=== PATIENT | female | born 1995 | race Two or more races ===

== ENCOUNTER 2017-03-06 11:23 | Inpatient (IN) | payer OTHER ==
[2017-03-05 10:29] VITALS: BMI 36.8
[2017-03-06] MEDS ORDERED: BUPIVACAINE HCL/PF 0.5% (5MG/ML) 10 ML VIAL ONE (14:06)
[2017-03-06] MEDS ORDERED: PROPOFOL 20 ML ONE (14:19)
[2017-03-06] MEDS ORDERED: MIDAZOLAM HCL 2 MG/2 ML SINGLE DOSE VIAL ONE (14:19)
[2017-03-06] MEDS ORDERED: ceFAZolin SODIUM 1 GM VIAL ONE (14:20)
[2017-03-06] MEDS ORDERED: LIDOCAINE HCL/PF 2% SDV 5ML VIAL ONE (14:20)
[2017-03-06] MEDS ORDERED: ALBUTEROL SO4 18 GM HFA INHALER IH ONE (14:51)
[2017-03-06] MEDS ORDERED: DEXAMETHASONE SOD PHOSPHATE 4 MG/1 ML VIAL ONE (14:51)
[2017-03-06] MEDS ORDERED: ACETAMINOPHEN INJECTION 100 ML IVPB ONE (14:54)
[2017-03-06] MEDS ORDERED: ceFAZolin SODIUM 1 GM VIAL IVPB ONE (15:31)
[2017-03-06] MEDS ORDERED: GLYCOPYRROLATE 0.2 MG/1 ML VIAL ONE (15:50)
[2017-03-06] MEDS ORDERED: ePHEDrine SULFATE 50 MG/1 ML AMPULE ONE (15:53)
--- NOTE | 2017-03-06 16:07 | PREOP ---
DATE OF ADMISSION: 03/06/2017 CHIEF COMPLAINT: GE reflux disease, vomiting, and epigastric pain, secondary to malfunctioning gastric band, and also a chief complaint of morbid obesity. HISTORY OF PRESENT ILLNESS: This patient is a 21-year-old female who had a gastric band placed 1 year ago. She had initial success, but then started receiving acid reflux and epigastric pain with vomiting frequently and needed the band loosened. Once that occurred, the patient was able to regain most of her weight, and she presents now for a laparoscopic vertical sleeve gastrectomy. PAST MEDICAL HISTORY: Significant for hypothyroidism and hypercholesterolemia. PAST SURGICAL HISTORY: Significant for the placement of the gastric band. MEDICATIONS: Include metformin and Synthroid. ALLERGIES: She has no known allergies. PHYSICAL EXAMINATION: General: She is awake, alert, in no acute distress. HEENT: No masses palpated. Lungs: Clear bilaterally. Heart: Regular sinus rhythm. Abdomen: Well-healed trocar incision. Soft, nontender on palpation. Extremities: No signs of swelling or edema. IMPRESSION: 1. Morbid obesity. 2. Malfunctioning gastric band. Procedure to be performed is removal of gastric band plus subcutaneous port, plus conversion to vertical sleeve gastrectomy surgery. MADAI CASTAÑEDA M.D. [id number]
[2017-03-06] MEDS ORDERED: BUPIVACAINE HCL/PF 0.5% (5MG/ML) 10 ML VIAL IJ ONE (16:27)
[2017-03-06] MEDS ORDERED: NEOSTIGMINE METHYLSULFATE 0.5 MG/ML - 10 ML MDV ONE (16:42)
--- NOTE | 2017-03-06 17:04 | OP ---
Operative Note - Note: Operative Date: 03/06/17 Pre-Operative Diagnosis: Morbid obesity, reflux, gastric band malfunction Operation: Upper endoscopy/EGD Post-Operative Diagnosis: Same as Pre-op Surgeon: Sebastien Sauceda Anesthesia: General Specimens Removed: None Estimated Blood Loss (mls): 0 Operative Report Dictated: Yes
--- NOTE | 2017-03-06 17:23 | OP ---
Operative Note - Note: Operative Date: 03/06/17 Pre-Operative Diagnosis: Morbid Obesity. Malfunctioning Gastric Band. Epigastric Pain. Vomiting. GE Reflux Disease Operation: Laparoscopic Vertical Sleeve Gastrectomy. Removal of Gastric Band plus subcutaneous port component. Laparoscopic Lysis of Adhesions. Excision of fibrous capsule around stomach. Diagnostic Laparoscopy Findings: Gastric Band with much scar tissue removed from around stomach. Vertical Sleeve Gastrectomy performed with #[address] Implants: none Post-Operative Diagnosis: Same as Pre-op (fibrous capsule around stomach; abdominal adhesions) Surgeon: Alon Jiang Junior Linux Systems Administrator: Sebastien Sauceda Anesthesia: General Specimens Removed: Greater curve of stomach. Gastric Band plus subcutaneous port component Drains & Tubes with Location: none Operative Report Dictated: Yes
[2017-03-06] MEDS ORDERED: PROMETHAZINE HCL 25 MG/1 ML VIAL IVPUSH PRN (17:26)
[2017-03-06] MEDS ORDERED: ONDANSETRON 4 MG/2 ML VIAL IVPUSH PRN ×2 (17:26)
[2017-03-06] MEDS ORDERED: HYDROmorphone HCL CARPU-JECT 1 MG/1 ML DISP.SYRIN IVPB PRN (17:28)
[2017-03-06] MEDS ORDERED: LACTATED RINGERS SOLUTION 1,000 ML IV SCH (17:30)
[2017-03-06] MEDS ORDERED: SODIUM CHLORIDE 1,000 ML IV SCH (17:30)
--- NOTE | 2017-03-06 17:42 | OP ---
DATE OF OPERATION: 03/06/2017 SURGEON: Steph Sauceda MD PREOPERATIVE DIAGNOSES: Morbid obesity, reflux, and gastric band malfunction. POSTOPERATIVE DIAGNOSES: Morbid obesity, reflux, and gastric band malfunction. ESTIMATED BLOOD LOSS: Zero. SPECIMENS: None. REASON FOR PROCEDURE: This is a 21-year-old female who had had previous gastric band placed. She was having dysphagia, reflux, and problems with it, and was undergoing a removal of the gastric band to a sleeve gastrectomy. Because of this, upper endoscopy was requested to evaluate the stomach after the band was removed. Please see Dr. Jiang's operative report for gastric band removal as well as a sleeve gastrectomy. DESCRIPTION OF PROCEDURE: After the gastric band was removed and the capsule was taken down, an endoscope was placed evaluating the esophagus, gastroesophageal junction, and entirety of the stomach to the level of the pylorus. The stomach was noted to be without stricture, without torsion, and without kink. No discrete masses were noted. The stomach was then suctioned. The endoscope was removed fully intact. In addition, a repeat endocopy was performed after the sleeve gastrectomy was performed to evaluate for leak/obstruction. The entirety of the esophagus, GE junction, staple line and stomach ws inspected. No leak or obstruction was noted. Te stomach was suctioned and the endoscope fully removed. STEPH SAUCEDA M.D. [id number] MTDD
[2017-03-06] MEDS ORDERED: HYDROmorphone HCL CARPU-JECT 2 MG/1 ML DISP.SYRIN ONE (18:01)
[2017-03-06 18:05] LABS: MCH 29.4 pg (25.7-33.7); MCHC 33.6 g/dl (32.0-36.0); MEAN CELL VOLUME 87.5 fl (80-96); MEAN PLT VOLUME 8.2 fl (7.5-11.1); PLATELET COUNT 333 K/MM3 (134-434); RDW 12.7 % (11.6-15.6); WHITE BLOOD COUNT 16.3 K/mm3 (4.0-10.0)
[2017-03-06] MEDS: HYDROmorphone HCL CARPU-JECT 1 MG/1 ML DISP.SYRIN IVPUSH PRN ×4 (18:05→18:35)
[2017-03-06 18:33] LABS: ALBUMIN 3.3 g/dl (3.4-5.0); ALK PHOS 73 U/L (45-117); ANION GAP 10 (8-16); BILIRUBIN,TOTAL 0.5 mg/dL (0.2-1.0); CALCIUM 7.8 mg/dL (8.5-10.1); CO2 25 mmol/L (21-32); CREATININE 0.7 mg/dL (0.55-1.02); GLUCOSE,RANDOM 149 mg/dL (74-106); SGOT/AST 15 U/L (15-37); SGPT/ALT 24 U/L (12-78)
[2017-03-06] MEDS ORDERED: METOCLOPRAMIDE HCL INJECTION 10 MG/2 ML VIAL ONE (19:18)
--- NOTE | 2017-03-06 19:19 | OP ---
DATE OF OPERATION: 03/06/2017 PREOPERATIVE DIAGNOSIS: 1. Morbid obesity. 2. Malfunctioning implantable device secondary to gastric band. 3. Epigastric abdominal pain. 4. Gastroesophageal reflux disease. 5. Vomiting. POSTOPERATIVE DIAGNOSIS: 1. Morbid obesity. 2. Mechanical complication of implantable device secondary to gastric band. 3. Epigastric abdominal pain. 4. Gastroesophageal reflux disease. 5. Vomiting. 6. Abdominal adhesions. 7. Fibrous capsule around the stomach. PROCEDURE PERFORMED: 1. Laparoscopic vertical sleeve gastrectomy. 2. Removal of gastric band plus subcutaneous port component. 3. Laparoscopic lysis of adhesions. 4. Excision of fibrous capsule around the stomach. 5. Diagnostic laparoscopy. OPERATING SURGEON: Alon Jiang M.D. COMPLIANCE REVIEW SPECIALIST SURGEON: Sebastien Sauceda M.D. ANESTHESIA: General. OPERATIVE PROCEDURE: The patient was brought into the operating room and was placed on the OR table in the supine position. All precautions were taken initially including padding for the back and the feet, and Venodyne boots were placed on both lower extremities. At that point, the abdomen was prepped and draped in the usual manner. A Veress needle was placed in the left upper quadrant, and a pneumoperitoneum was established. A number 12 bladeless trocar was placed in the left upper quadrant and through the trocar, laparoscopic camera was placed. Under direct vision, a number 15 bladeless trocar was placed in the midline in the supraumbilical position, followed by a number 5 bladeless trocar in the right upper quadrant, and a number 5 bladeless trocar below the left costal margin. A Emily liver retractor was then placed in the epigastrium to retract the left lobe of the liver. The patient was then placed in 20-degree reverse Trendelenburg position. There was an adhesion noted between the omentum and anterior abdominal wall just distal to the stomach that was in the way of viewing the stomach. Therefore the assistant infant teacher surgeon retracted the adhesion laterally, the operating surgeon used a Ligasure device to dissect the adhesions off the anterior abdominal wall. Once this was completed, attention was directed to the band. The band was noted to be around the top of the stomach. There was noted to be a fibrous capsule around the band, and as the assistant infant teacher surgeon retracted the band towards the patient's left side, the operating surgeon used the electrocautery to score over the band and dissect the fibrous capsule off the band on the lesser curvature. Once this was completed, the operating surgeon pulled the band towards the patient's right side as the assistant infant teacher surgeon retracted the greater curve of the stomach inferiorly. The fibrous capsule over the band on the greater curvature was dissected with electrocautery, and this continued all the way to the left diaphragm, and now the entire fibrous capsule wrapped around the band was completely opened. The band tubing was then cut at a takeoff to subcutaneous port, and the band tubing was removed from around the band, and the band was then pulled from around the stomach, and the whole band with the tubing was sent off the field as specimen to pathology. At this point, upper endoscopy was performed by Dr. Sebastien Sauceda, which will be described in his operative note discussing the procedure. This confirmed that the inside the stomach had a normal appearing mucosa and no ill effects to the band being around it, and no fibrous tissue. At this point, the pylorus was found 6 cm measured proximally. Here the operating surgeon lifted the anterior stomach wall toward the anterior abdominal wall, as the assistant infant teacher surgeon retracted the gastrocolic ligament inferiorly. The Ligasure device was then used to dissect the gastrocolic ligament off the greater curve of the stomach. This continued in a superior and vertical direction until a final short gastric vessel between the superior pole of the spleen and proximal fundus was divided. At this juncture, the number 36 bougie, which had been placed by anesthesia, was now pushed all the way down the stomach toward the pylorus. With the bougie held along the lesser curve a series of daksha were performed with the first tube being black load daksha, 6 cm length along the bougie. This was followed by a series of purple load daksha along the bougie until the final staple was fired in the left upper quadrant and the greater curve was now completely detached from the lesser curve. It should be noted that prior to firing the daksha, both the anterior and posterior zhu were checked that they were intact, and in the area of the esophagogastric junction approximately 1 cm serosa remained on the anterior and posterior surfaces. At this juncture, Dr. Sauceda once again performed an upper endoscopy. The bougie was removed, and the upper endoscopy showed that there was no signs of any stricture or obstruction, and the sleeve had no signs of any leaks in the staple line. At this point the greater curve sleeve that was resected was now removed through the number 15 trocar site and handed off the field as specimen. The number 15 and 12 trocar sites were closed with endo closure device to prevent internal bleeding. Under direct visions, all trocars were removed, and the pneumoperitoneum was released. The supraumbilical number 15 port was now extended for about 0.5 cm toward the patient's right side. Electrocautery was used to score the subcutaneous fat tissue, and this continued until the capsule around the port was reached. The fibrous capsule around the port was removed, and the port was then removed from the right anterior rectus muscle and sent off the field as specimen to pathology. All trocar sites now received 0.25% Marcaine and were closed with 4-0 Biosyn in subcuticular fashion. The only exception was a number 15 trocar site which first was closed with 3-0 Vicryl in the subcutaneous tissue , followed by 4-0 Biosyn subcuticular fashion. Dressings were applied, patient awoken from anesthesia and transferred out of the operating room to recovery room in stable condition. ANESTHESIA: General. SURGEON: Alon Jiang M.D. COMPLIANCE REVIEW SPECIALIST: Sebastien Sauceda M.D. ESTIMATED BLOOD LOSS: 30 mL. DISPOSITION: Patient transferred to recovery room in stable condition. Homero VILLALPANDO/[id number]
[2017-03-06] MEDS: METOCLOPRAMIDE HCL INJECTION 10 MG/2 ML VIAL IVPUSH SCH (19:24)
[2017-03-06] MEDS ORDERED: POTASSIUM CHLORIDE 20 MEQ in SODIUM CHLORIDE 250 ML IVPB ONE (20:00)
[2017-03-06] MEDS: ENOXAPARIN NA (PORCINE) 40 MG/0.4 ML DISP.SYRIN SQ SCH (22:34)
[2017-03-06] MEDS: FAMOTIDINE 20 MG/50 ML IVPB 20 MG/50 ML MG IVPB SCH (22:35)
[2017-03-07] MEDS: METOCLOPRAMIDE HCL INJECTION 10 MG/2 ML VIAL IVPUSH SCH ×5 (06:35→22:49)
[2017-03-07 07:22] LABS: MCH 29.8 pg (25.7-33.7); MCHC 34.3 g/dl (32.0-36.0); MEAN CELL VOLUME 86.9 fl (80-96); MEAN PLT VOLUME 8.3 fl (7.5-11.1); PLATELET COUNT 298 K/MM3 (134-434); RDW 12.8 % (11.6-15.6); WHITE BLOOD COUNT 10.9 K/mm3 (4.0-10.0)
[2017-03-07 08:06] LABS: ALBUMIN 3.4 g/dl (3.4-5.0); ALK PHOS 68 U/L (45-117); ANION GAP 10 (8-16); BILIRUBIN,TOTAL 0.5 mg/dL (0.2-1.0); CO2 25 mmol/L (21-32); CREATININE 0.5 mg/dL (0.55-1.02); GLUCOSE,RANDOM 100 mg/dL (74-106); SGOT/AST 18 U/L (15-37); SGPT/ALT 26 U/L (12-78); TOT PROT 6.3 g/dl (6.4-8.2)
[2017-03-07] MEDS: FAMOTIDINE 20 MG/50 ML IVPB 20 MG/50 ML MG IVPB SCH ×2 (09:54→21:10)
[2017-03-07] MEDS: ENOXAPARIN NA (PORCINE) 40 MG/0.4 ML DISP.SYRIN SQ SCH ×2 (09:54→21:10)
[2017-03-07] MEDS ORDERED: oxyCODONE HCL 5 MG TABLET PO PRN (15:35)
[2017-03-07] MEDS ORDERED: ACETAMINOPHEN 325 MG TABLET (FP) PO PRN (15:35)
--- NOTE | 2017-03-07 15:35 | PN ---
Progress Note (short form) - Note Progress Note: POD#1 Afebrile; VSS NO N/V C/O pain in area of LUQ trocar site UGI- no leak, no obstruction K+-3.9 (increased from 3.3) Wbc-11.9 H/H-11.5/33.5 P- Begin PO clear liquids- 2 oz po tid Encourage ambulation Cont DVT prophylaxis
[2017-03-07] MEDS ORDERED: SODIUM CHLORIDE 1,000 ML IV SCH (15:45)
--- NOTE | 2017-03-07 16:03 | PN ---
Progress Note (short form) - Note Progress Note: Anesthesia POD#1 S/P Removal of Gastric Band and Sleeve Gasterectomy under GA VSS,some nausea for which she received the medication. No other complications seen. Jennifer Boo MD.
[2017-03-08 05:49] VITALS: BP 142/65; PULSE 68; TEMP 98.5
[2017-03-08] MEDS: METOCLOPRAMIDE HCL INJECTION 10 MG/2 ML VIAL IVPUSH SCH (06:29)
--- NOTE | 2017-03-10 16:37 | PATH ---
Surgical Pathology Report Patient Name: LIZ ENCINAS Med. Rec. #: [id number] /Age/Gender: 1995 (Age: 21) / F Account: [id number] Location: 4 W TELEMETRY U Taken: 03/06/2017 Received: 03/07/2017 Reported: 03/10/2017 Physicians: Alon Jiang M.D. Specimen(s) Received A: GASTRIC BAND AND SUBCUTANEOUS PORT B: GREATER CURVATURE STOMACH Clinical History Morbid obesity, malfunctioning gastric band Final Diagnosis A. SUBCUTANEOUS PORT AND OLD GASTRIC BAND, REMOVAL: ENDODONTICS DENTIST. MACROSCOPIC DIAGNOSIS. B. STOMACH, GREATER CURVATURE, LAPAROSCOPIC VERTICAL SLEEVE GASTRECTOMY: PORTION OF STOMACH WITH CONGESTION AND MILD CHRONIC GASTRITIS. IMMUNOHISTOCHEMICAL STAIN FOR H. PYLORI IS NEGATIVE. Electronically Signed Elizabeth Langford M.D. Gross Description A. Received fresh labeled "subcutaneous port, old gastric band," is a 4 cm in diameter gastric band with an attached 42 cm in length portion of tubing. Also received within the same container is a 3 cm in diameter x 1.4 cm in depth white, circular device, consistent with a port. The port displays a 13 cm in length portion of tubing extending from one aspect. No soft tissue is present. No sections are submitted, gross only. B. Received in formalin, labeled "greater curvature of stomach," is a 100 gram, 15.5 x 3.5 x 2.9 cm. portion of stomach with a stapled margin of resection. The serosa is bose-rob with minimal attached fat. The mucosa is bose-red with normal folds. No mucosal masses are identified. Logistics Supervisor sections are submitted in one cassette. /03/07/201703/07/2017
== END 2017-03-08 09:06 | disposition home or self-care (01) | DRG 909 ==
LOC: JSAMEDAYSX 13:29 → J4W 19:51
PROVIDERS: ADMIT Surgery; ATTEND Surgery
PROC: 0DB64ZZ Excision of Stomach, Percutaneous Endoscopic Approach (ICD-10-PCS; 2017-03-06)
PROC: 0WJP4ZZ Inspection of Gastrointestinal Tract, Percutaneous Endoscopic Approach (ICD-10-PCS; 2017-03-06)
PROC: 0DJ08ZZ Inspection of Upper Intestinal Tract, Via Natural or Artificial Opening Endoscopic (ICD-10-PCS; 2017-03-06)
PROC: 0DB64Z3 Excision of Stomach, Percutaneous Endoscopic Approach, Vertical (ICD-10-PCS; principal; 2017-03-06 14:30)
PROC: 0DP64CZ Removal of Extraluminal Device from Stomach, Percutaneous Endoscopic Approach (ICD-10-PCS; 2017-03-06 14:30)
DX: T85.518A Breakdown (mechanical) of other gastrointestinal prosthetic devices, implants and grafts, initial encounter (principal); K66.0 Peritoneal adhesions (postprocedural) (postinfection); K31.89 Other diseases of stomach and duodenum; Y83.2 Surgical operation with anastomosis, bypass or graft as the cause of abnormal reaction of the patient, or of later complication, without mention of misadventure at the time of the procedure; Z46.51 Encounter for fitting and adjustment of gastric lap band; E66.01 Morbid (severe) obesity due to excess calories; Z68.36 Body mass index [BMI] 36.0-36.9, adult; K21.9 Gastro-esophageal reflux disease without esophagitis; R10.13 Epigastric pain; R11.10 Vomiting, unspecified
CPT/HCPCS: 36415; 74241-TC; 80053; 84703; 85027; 86850; 86900; 86901; 88300-TC; 88305-TC; 94010; 94760

== ENCOUNTER 2018-02-20 13:52 | Emergency (ER) | payer OTHER ==
[2018-02-20 14:12] VITALS: BP 119/66; PULSE 79; BMI 26.6
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
[2018-02-20] MEDS ORDERED: KETOROLAC TROMETHAMINE 60 MG/2 ML VIAL IM ONE (15:06)
[2018-02-20] MEDS ORDERED: KETOROLAC TROMETHAMINE 60 MG/2 ML VIAL ONE (15:09)
== END 2018-02-20 15:22 | disposition home or self-care (01) ==
LOC: JERFT 13:52
PROC: 3E0233Z Introduction of Anti-inflammatory into Muscle, Percutaneous Approach (ICD-10-PCS; principal; 2018-02-20)
DX: M54.2 Cervicalgia (principal); M54.5 Low back pain; V43.52XA Car driver injured in collision with other type car in traffic accident, initial encounter; Y93.89 Activity, other specified; Y92.410 Unspecified street and highway as the place of occurrence of the external cause
CPT/HCPCS: 84703; 99281-25

== ENCOUNTER 2018-03-27 10:42 | Emergency (ER) | payer OTHER ==
[2018-03-27 10:52] VITALS: BP 149/73; PULSE 84; TEMP 97.9; BMI 26.4
[2018-03-27] MEDS ORDERED: KETOROLAC TROMETHAMINE 60 MG/2 ML VIAL IM ONE (11:30)
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
[2018-03-27] MEDS ORDERED: KETOROLAC TROMETHAMINE 60 MG/2 ML VIAL ONE (11:45)
== END 2018-03-27 13:08 | disposition home or self-care (01) ==
LOC: JERFT 10:42
PROC: 3E0233Z Introduction of Anti-inflammatory into Muscle, Percutaneous Approach (ICD-10-PCS; principal; 2018-03-27)
DX: S16.1XXA Strain of muscle, fascia and tendon at neck level, initial encounter (principal); V43.52XA Car driver injured in collision with other type car in traffic accident, initial encounter; Y93.89 Activity, other specified; Y92.410 Unspecified street and highway as the place of occurrence of the external cause
CPT/HCPCS: 72050-TC-FY; 84703; 99281-25

== ENCOUNTER 2018-05-02 12:39 | Emergency (ER) | payer OTHER ==
[2018-05-02 12:46] VITALS: BP 120/80; PULSE 75; TEMP 98.6; BMI 25.2
[2018-05-02 12:58] LABS: URINE APPEARANCE Clear; URINE BILIRUBIN Negative (NEGATIVE); URINE COLOR Amber; URINE GLUCOSE (UA) Negative (NEGATIVE); URINE KETONE Negative (NEGATIVE); URINE LEUK ESTERASE Negative (NEGATIVE); URINE NITRITE Negative (NEGATIVE); URINE PROTEIN Negative (NEGATIVE); URINE UROBILINOGEN 0.2 (0.2-1.0)
[2018-05-02 13:04] LABS: HCG,QUALITATIVE URINE Negative
--- NOTE | 2018-05-02 13:05 | PDOC ---
History of Present Illness - General Chief Complaint: Pain Stated Complaint: ABD PAIN Time Seen by Provider: 05/02/18 12:40 History Source: Patient Exam Limitations: No Limitations - History of Present Illness Travel History: No Initial Comments: 05/02/18 13:00 22y F sp gastric banding, and sleeve (in 02/2017) presents with intermittent abd pain. Pt states that she has had burning after eating/drinking associated with nausae/vomiting for week. She has had similar symptoms in the past and had H. pylori that was treated and was given famotidine this past week with no significant relief. she is currently asypmtmatic, but is concerned that she may develop the pain again. The patient notse she only has these symptmos after she eats. pt denies any feve/chills, hemetemeisis pt endorses some diarrhea, but notse it has chronic and has it for approx 2 years. no blood or melena noted. pt denies any cp, sob, dizziness, current n/v, abd pain, coughing, extermity swelling. uses occasional NSAIDS for her periods, but does not use it regularly social etoh PMD: Dr. Vitale Past History - Past Medical History Allergies/Adverse Reactions: Allergies Allergy/AdvReac Type Severity Reaction Status Date / Time No Known Drug Allergies Allergy Verified 05/02/18 12:40 Home Medications: Ambulatory Orders Esomeprazole Magnesium [Nexium 24Hr] 20 mg PO DAILY #14 tablet. 05/02/18 Famotidine 20 mg PO DAILY 05/02/18 Mag Hydrox/Aluminum Hyd/Simeth [Maalox Advanced Suspension] 10 ml GT QID PRN #1 bot 05/02/18 Anemia: No Asthma: No Cancer: No Cardiac Disorders: No CVA: No COPD: No CHF: No Dementia: No Diabetes: Yes (H/O BORDERLINE-WAS ON METFORMIN) GI Disorders: Yes (REFLUX, H/O H PYLORI 09/2014) Disorders: No HTN: No Hypercholesterolemia: Yes Liver Disease: No Seizures: No Thyroid Disease: Yes (H/O THYROID DISEASE) - Surgical History Abdominal Surgery: Yes (GASTRIC BAND to sleeve) Appendectomy: No Cardiac Surgery: No Cholecystectomy: No Lung Surgery: No Neurologic Surgery: No Orthopedic Surgery: No - Reproductive History Is Patient Now?: No - Immunization History Immunization Up to Date: Yes - Suicide/Smoking/Psychosocial Hx Smoking Status: No Smoking History: Current some day smoker Have you smoked in the past 12 months: Yes Number of Cigarettes Smoked Daily: 1 If you are a former smoker, when did you quit?: LAST HOOKA USE 06/2015 Information on smoking cessation initiated: No 'Breaking Loose' booklet given: 10/12/13 Hx Alcohol Use: (social) Drug/Substance Use Hx: No Substance Use Type: None Hx Substance Use Treatment: No Review of Systems - Review of Systems Able to Perform ROS?: Yes Comments:: 05/02/18 13:03 Constitutional - no reported Fever, Chills, HEENT: no reported vision changes, sore throat Respiratory: no reported cough, sob, hemoptysis Cardiac: no reported chest pain, palpitations, light headedness, leg swelling Abd/GI: +abd pain, nausea, vomiting, diarrhea no reported blood per rectum, melena, : no reported dysuria, frequency, discharge Musculskelatal - no reported back pain, joint swelling skin - no reported bruising, erythema, rash neurological: no reported headache, numbness, focal weakness, tingling, ataxia, hematologic: no reported easy bruising, easy bleeding GENERAL: The patient is awake, alert, and fully oriented, Nontoxic - in no acute distress. HEAD: Normocephalic, atraumatic. EYES: extraocular movements intact, sclera anicteric, conjunctiva clear. ENT: Normal voice, Moist mucous membranes. NECK: Normal range of motion, supple LUNGS: Breath sounds equal, clear to auscultation bilaterally. No wheezes, no rhonchi, no rales. HEART: Regular rate and rhythm, normal S1 and S2 without murmur, rub or gallop. ABDOMEN: Soft, nontender, No guarding, no rebound. . No CVA tenderness EXTREMITIES: Normal range of motion,no edema NEUROLOGICAL: No facial assymetry, Normal speech, PSYCH: Normal mood, normal affect. SKIN: Warm, Dry, normal turgor, *Physical Exam - Vital Signs Last Vital Signs Temp Pulse Resp BP Pulse Ox 98.6 F 75 18 120/80 100 05/02/18 12:40 05/02/18 12:40 05/02/18 12:40 05/02/18 12:40 05/02/18 12:40 Moderate Sedation - Procedure Monitoring Vital Signs: Procedure Monitoring Vital Signs Temperature 98.6 F 05/02/18 12:40 Pulse Rate 75 05/02/18 12:40 Respiratory Rate 18 05/02/18 12:40 Blood Pressure 120/80 05/02/18 12:40 O2 Sat by Pulse Oximetry (%) 100 05/02/18 12:40 ED Treatment Course - ADDITIONAL ORDERS Additional order review: Laboratory Results 05/02/18 12:48 Urine Color Candice Urine Appearance Clear Urine pH 6.0 Ur Specific [place] 1.025 Urine Protein Negative Urine Glucose (UA) Negative Urine Ketones Negative Urine Blood Negative Urine Nitrite Negative Urine Bilirubin Negative Urine Urobilinogen 0.2 Ur Leukocyte Esterase Negative Medical Decision Making - Medical Decision Making 05/02/18 13:04 suspect gastritis no signs to suggest PUD pt currently asymptmoatic, making panceratitis unlikely abd soft nontender will defer further workup here as pt will most likely benefit from Endoscopy will refer pt to GI for further managemnt will give pt rx for nexium and maalox diet instructions given to patient I discussed the physical exam findings, ancillary test results and final diagnoses with the patient. I answered all of the patient's questions. The patient was satisfied with the care received and felt comfortable with the discharge plan and treatment plan. The patient will call their primary care physician within 24 hours to arrange follow-up and will return to the Emergency Department with any new, persistent or worsening symptoms. *DC/Admit/Observation/Transfer Diagnosis at time of Disposition: GERD (gastroesophageal reflux disease) Qualifiers: Esophagitis presence: without esophagitis Qualified Code(s): K21.9 - Gastro- esophageal reflux disease without esophagitis - Discharge Dispostion Disposition: HOME Condition at time of disposition: Improved Decision to Admit order: No - Prescriptions Prescriptions: Esomeprazole Magnesium [Nexium 24Hr] 20 mg PO DAILY #14 tablet.dr Mag Mendez/Aluminum Hyd/Simeth [Maalox Advanced Suspension] 10 ml GT QID PRN #1 bot PRN Reason: Dyspepsia - Referrals Referrals: Mychal Doll MD [Primary Care Provider] - Roman Escobar MD [Staff Physician] - - Patient Instructions Printed Discharge Instructions: DI for Gastroesophageal Reflux Disease (GERD), GERD Diet Additional Instructions: Return to the emergency department immediately with ANY new, persistent or worsening symptoms including any recurrent abdominal pain, fevers, chills, inability to tolerate oral intake or any other concerns. Stay away from alcohol, spicy foods, caffeine, acidic/sour foods. Take maalox if you have burning for relief. Continue using nexium every night for one week. You MUST call and follow up with your doctor and composition teacher within 5 days for further evaluation of your symptoms. Your emergency department visit is not complete without a followup with your doctor for reevaluation. Results were discussed with you. Please make sure your doctor reviews the results of your emergency evaluation. Print Language: [place] ZEALAND[place] - Post Discharge Activity
== END 2018-05-02 13:25 | disposition home or self-care (01) ==
LOC: FER 12:39
DX: K21.9 Gastro-esophageal reflux disease without esophagitis (principal); F17.210 Nicotine dependence, cigarettes, uncomplicated; E78.00 Pure hypercholesterolemia, unspecified; E03.9 Hypothyroidism, unspecified; R73.03 Prediabetes
CPT/HCPCS: 81003; 84703; 99283-25

== ENCOUNTER 2018-07-10 16:57 | Emergency (ER) | payer OTHER ==
[2018-07-10 17:02] VITALS: BMI 25.4
[2018-07-10 17:19] VITALS: BP 114/76; PULSE 82; TEMP 98.4
--- NOTE | 2018-07-10 17:24 | PDOC ---
History of Present Illness - General History Source: Patient Exam Limitations: No Limitations - History of Present Illness Initial Comments: 07/10/18 17:30 The patient is a 22 year old female with a significant past medical history of DM (diet controlled), reflux (h/o H. Pylori 09/2014), and thyroid disease who presents to the ED with right red eye redness. The patient reports she was taking a hot shower, the water got in her eye and it started burning. The patient notes 2 weeks ago she got a stye in her right eye, which she thought was due to her eyeliner and eventually self resolved. The patient denies any visual changes or discharge from eyes, blurry vision or blindness, fever, chills, dizziness, weakness, paresthesias, No sick contacts or travel. Allergies: NKDA Past Medical History: DM, reflux, and thyroid disease Social history: Lives with family. Everyday recreational marijuana use. Social drinker. Surgical history: gastric banding s/p removal, and sleeve (02/2017) PCP: Mychal Garland Constitutional: no fevers or chills. HEENT: no headache or dizziness. No congestion. No visual/hearing disturbances. No blurry vision or vision loss. No eye discharge, pain, redness. +facial rash, +red lesions/redness to right eye. CVS: no cp or syncope. Resp: no sob. +dry cough. Gastrointestinal: no abdominal pain, nausea or vomiting. Genitourinary: no acute urinary sx, hematuria. MUSCULOSKELETAL: No joint pain and swelling. No neck or back pain. SKIN: no redness or skin changes, no discharge, no rash. No wounds. Hematologic: no easy bruising/bleeding. NEUROLOGIC: No headache, dizziness, LOC or altered mental status. No weakness, numbness or tingling. Allergic/Immunologic: no allergies All other systems reviewed and negative, or as documented in HPI. PE: General: Well appearing, awake and alert, NAD. HEENT: NCAT, PERRL, EOMI, clear conjunctiva, anicteric, moist mucus membranes, clear oropharynx, no oral lesions.. Visual acuity 20/20 bilaterally, without corrective lenses. Right eye superiorly on sclera with small punctate red lesions, no surrounding ocular erythema or edema or tenderness. No discharge. No FB visualized. Eyelids normal bilaterally. Neck: neck supple, FROM Resp: CTAB, normal and even respirations, no respiratory distress CVS: RRR, no murmurs, 2+ peripheral pulses throughout, no peripheral edema Abdomen: soft, NTND, old surgical scars. Back: nontender, normal inspection and ROM MSK: no edema, JOSEPH x4, ROM intact. No clubbing or cyanosis. normal bulk and tone. Neuro: alert Skin: warm and well perfused, cap refill <2 sec, normal color; no purpura or petechiae. Old healing bruises, mild tenderness in RLE <Elisa Cheatham - Last Filed: 07/10/18 17:30> - General History Source: Patient Exam Limitations: No Limitations <Sahra Dominguez - Last Filed: 07/10/18 17:36> - General Chief Complaint: Eye Problem Stated Complaint: EYE REDNESS Time Seen by Provider: 07/10/18 17:11 Past History <Elisa Cheatham - Last Filed: 07/10/18 17:30> - Past Medical History Anemia: No Asthma: No Cancer: No Cardiac Disorders: No CVA: No COPD: No CHF: No Dementia: No Diabetes: Yes (H/O BORDERLINE-WAS ON METFORMIN) GI Disorders: Yes (REFLUX, H/O H PYLORI 09/2014) Disorders: No HTN: No Hypercholesterolemia: Yes Liver Disease: No Seizures: No Thyroid Disease: Yes (H/O THYROID DISEASE) - Surgical History Abdominal Surgery: Yes (GASTRIC BAND to [id number]) Appendectomy: No Cardiac Surgery: No Cholecystectomy: No Lung Surgery: No Neurologic Surgery: No Orthopedic Surgery: No - Immunization History Immunization Up to Date: Yes - Suicide/Smoking/Psychosocial Hx Smoking Status: No Smoking History: Never smoked Have you smoked in the past 12 months: Yes Number of Cigarettes Smoked Daily: 1 If you are a former smoker, when did you quit?: LAST HOOKA USE 06/2015 'Breaking Loose' booklet given: 10/12/13 Hx Alcohol Use: Yes (OCASIONAL) Drug/Substance Use Hx: No Substance Use Type: None Hx Substance Use Treatment: No <Sahra Dominguez - Last Filed: 07/10/18 17:36> - Past Medical History Allergies/Adverse Reactions: Allergies Allergy/AdvReac Type Severity Reaction Status Date / Time No Known Drug Allergies Allergy Verified 07/10/18 16:58 Home Medications: Ambulatory Orders Famotidine 20 mg PO DAILY 05/02/18 *Physical Exam - Vital Signs Last Vital Signs Temp Pulse Resp BP Pulse Ox 98.4 F 82 18 114/76 99 07/10/18 16:58 07/10/18 16:58 07/10/18 16:58 07/10/18 16:58 07/10/18 16:58 <Elisa Cheatham - Last Filed: 07/10/18 17:30> - Vital Signs Last Vital Signs Temp Pulse Resp BP Pulse Ox 98.4 F 82 18 114/76 99 07/10/18 16:58 07/10/18 16:58 07/10/18 16:58 07/10/18 16:58 07/10/18 16:58 <Sahra Dominguez - Last Filed: 07/10/18 17:36> Moderate Sedation - Procedure Monitoring Vital Signs: Procedure Monitoring Vital Signs Temperature 98.4 F 07/10/18 16:58 Pulse Rate 82 07/10/18 16:58 Respiratory Rate 18 07/10/18 16:58 Blood Pressure 114/76 07/10/18 16:58 O2 Sat by Pulse Oximetry (%) 99 07/10/18 16:58 <Elisa Cheatham - Last Filed: 07/10/18 17:30> - Procedure Monitoring Vital Signs: Procedure Monitoring Vital Signs Temperature 98.4 F 07/10/18 16:58 Pulse Rate 82 07/10/18 16:58 Respiratory Rate 18 07/10/18 16:58 Blood Pressure 114/76 07/10/18 16:58 O2 Sat by Pulse Oximetry (%) 99 07/10/18 16:58 <Sahra Dominguez - Last Filed: 07/10/18 17:36> Medical Decision Making - Medical Decision Making 07/10/18 17:34 hpi as documented VS wnl. well appearing normal ocular and face exam, no lesions or petechiae. no s/s allergy or infection. 20/20 visual acuity doubt conjunctivitis, FB. could be burst capillaries or irritation from hot water while showering. pt also admits to wearing makeup, could be contact irritation. Pt to be discharged in stable condition. Patient and family made aware of impression and plan, return precautions discussed (including but not limited to worsening pain or symptoms), fevers, or signs of infection, chest pain, respiratory distress, inability to tolerate oral intake, dehydration, syncope, or neurologic changes). Follow up with PMD and/or specialist as recommended, follow up information provided, take medications as instructed for duration of time. continue with supportive care, avoid triggers and precipitants. All questions answered to patient's satisfaction and expressed understanding and comfort with this. Patient does not suffer from an acute life-threatening medical condition at this time she is safe for outpatient follow-up. <Sahra Dominguez - Last Filed: 07/10/18 17:36> *DC/Admit/Observation/Transfer - Attestations Scribe Attestion: 07/10/18 17:31 Documentation prepared by Elisa Cheatham, acting as medical grade shoemaker for Sahra Dominguez MD, MD <Elisa Cheatham - Last Filed: 07/10/18 17:30> - Discharge Dispostion Decision to Admit order: No - Attestations Physician Attestion: 07/10/18 17:36 I, Sahra Dominguez MD, attest that this document has been prepared under my direction and personally reviewed by me in its entirety. I further attest, that it accurately reflects all work, treatment, procedures and medical decision -making performed by me. <Sahra Dominguez - Last Filed: 07/10/18 17:36> Diagnosis at time of Disposition: Encounter for medical screening examination, Eye exam, routine, Eye irritation - Discharge Dispostion Disposition: HOME Condition at time of disposition: Stable - Referrals Referrals: Mychal Doll MD [Primary Care Provider] - Amy Whatley MD [Staff Physician] - Herson Landin MD [Staff Physician] - Karine Rosa MD [Staff Physician] - Juan Escobar MD [Staff Physician] - - Patient Instructions Printed Discharge Instructions: DI for Red Eye Additional Instructions: you should follow up with master machinist, referrals given as well as primary doctor avoid triggers and exposures to your eye, avoid hot water and irritation. your vision and exam here were benign and within normal limits if visual deficits occur, weakness, numbness, tingling, pain, discharge, redness worsening or skin changes, return sooner for evaluation. - Post Discharge Activity
== END 2018-07-10 17:40 | disposition home or self-care (01) ==
LOC: SUPCPDRO 16:57 → FER 16:57
DX: Z00.8 Encounter for other general examination (principal); Z01.00 Encounter for examination of eyes and vision without abnormal findings
CPT/HCPCS: 99281-25

== ENCOUNTER 2018-12-19 20:25 | Emergency (ER) | payer OTHER ==
[2018-12-19 20:39] VITALS: BP 113/67; PULSE 85; TEMP 98.4; BMI 27.4
--- NOTE | 2018-12-19 21:05 | PDOC ---
History of Present Illness - General Chief Complaint: Eye Problem Stated Complaint: SWELLING TO LT EYE Time Seen by Provider: 12/19/18 20:50 History Source: Patient Exam Limitations: No Limitations - History of Present Illness Initial Comments: 12/19/18 20:55 HISTORY OF PRESENT ILLNESS: 23-year-old woman denies medical history presents emergency department for evaluation of gross to her left eyelid. Patient is concerned as it is sometimes painful but the pain has been relieved by over-the- counter Aleve. She denies any blurry vision or any visual changes. She denies pain to the globe itself and the pain is localized solely to the eyelid. No recent travel or sick contacts. PAST MEDICAL HISTORY: Denies past medical history SURGICAL HISTORY: Denies ALLERGIES: No known drug allergies REVIEW OF SYSTEMS General/Constitutional: Denies fever or chills. Denies weakness, weight change. HEENT: see HPI Cardiovascular: Denies chest pain or shortness of breath. Respiratory: Denies cough, wheezing, or hemoptysis. Gastrointestinal: Denies nausea, vomiting, diarrhea or constipation. Denies rectal bleeding. Genitourinary: Denies dysuria, frequency, or change in urination. Musculoskeletal: Denies joint or muscle swelling or pain. Denies neck or back pain. Skin and breasts: Denies rash or easy bruising. Neurologic: Denies headache, vertigo, loss of consciousness, or loss of sensation. Psychiatric: Denies depression or anxiety. Endocrine: Denies increased thirst. Denies abnormal weight change. Hematologic/Lymphatic: Denies anemia, easy bleeding, or history of blood clots. Allergic/Immunologic: Denies hives or skin allergy. Denies latex allergy. PHYSICAL EXAM General Appearance: Well-appearing, appropriately dressed. No apparent distress , no intoxication. HEENT: EOMI, PERRLA, normal ENT inspection, normal voice, TMs normal, pharynx normal. No conjunctival pallor. No photophobia, scleral icterus.Left upper eyelid Chiles in noted. No conjunctival erythema or scleral injection present. Visual acuity is 20/20 right eye, left eye both ice. Neck: Supple. Trachea midline. No tenderness, rigidity, carotid bruit, stridor , lymphadenopathy, or thyromegaly. Respiratory/Chest: Lungs CTAB. No shortness of breath, chest tenderness, respiratory distress, accessory muscle use. No crackles, rales, rhonchi, stridor , wheezing, dullness Cardiovascular: RRR. S1, S2. No JVD, murmur, bradycardia, tachycardia. Past History - Past Medical History Allergies/Adverse Reactions: Allergies Allergy/AdvReac Type Severity Reaction Status Date / Time No Known Drug Allergies Allergy Verified 07/10/18 16:58 Home Medications: Ambulatory Orders Famotidine 20 mg PO DAILY 05/02/18 Anemia: No Asthma: No Cancer: No Cardiac Disorders: No CVA: No COPD: No CHF: No Dementia: No Diabetes: Yes (H/O BORDERLINE-WAS ON METFORMIN) GI Disorders: Yes (REFLUX, H/O H PYLORI 09/2014) Disorders: No HTN: No Hypercholesterolemia: Yes Liver Disease: No Seizures: No Thyroid Disease: Yes (H/O THYROID DISEASE) - Surgical History Abdominal Surgery: Yes (GASTRIC BAND to [id number]) Appendectomy: No Cardiac Surgery: No Cholecystectomy: No Lung Surgery: No Neurologic Surgery: No Orthopedic Surgery: No - Immunization History Immunization Up to Date: Yes - Suicide/Smoking/Psychosocial Hx Smoking Status: No Smoking History: Never smoked Have you smoked in the past 12 months: Yes Number of Cigarettes Smoked Daily: 1 If you are a former smoker, when did you quit?: LAST HOOKA USE 06/2015 'Breaking Loose' booklet given: 10/12/13 Hx Alcohol Use: No Drug/Substance Use Hx: No Substance Use Type: None Hx Substance Use Treatment: No *Physical Exam - Vital Signs Last Vital Signs Temp Pulse Resp BP Pulse Ox 98.4 F 85 20 113/67 100 12/19/18 20:31 12/19/18 20:31 12/19/18 20:31 12/19/18 20:31 12/19/18 20:31 Medical Decision Making - Medical Decision Making 12/19/18 20:54 A/P: 23-year-old woman with left upper eyelid chalazion Supportive treatment is been discussed with the patient patient is discharged home follow-up to primary doctor as needed. *DC/Admit/Observation/Transfer Diagnosis at time of Disposition: Chalazion left upper eyelid - Discharge Dispostion Disposition: HOME Condition at time of disposition: Stable Decision to Admit order: No - Referrals Referrals: Yessenia Mclean [Primary Care Provider] - - Patient Instructions Printed Discharge Instructions: DI for Chalazion Additional Instructions: You may take Zyrtec during the day and Benadryl at night to help with swelling or itching. Continue to take Tylenol and Aleve as directed by manufacturers instructions. Return to emergency department to experience vision loss, fevers, chills or worsening symptoms. Thank you very much for choosing us to provide your emergent health care needs. - Post Discharge Activity
== END 2018-12-19 21:00 | disposition home or self-care (01) ==
LOC: JERFT 20:25
DX: H00.14 Chalazion left upper eyelid (principal); E11.9 Type 2 diabetes mellitus without complications; E78.00 Pure hypercholesterolemia, unspecified; K21.9 Gastro-esophageal reflux disease without esophagitis
CPT/HCPCS: 99281-25

== ENCOUNTER 2019-02-27 17:40 | Emergency (ER) | payer OTHER ==
[2019-02-27 17:50] VITALS: BP 151/94; PULSE 81; TEMP 98.3; BMI 26.9
[2019-02-27] MEDS ORDERED: ACETAMINOPHEN 325 MG TABLET (FP) PO ONE (18:08)
[2019-02-27] MEDS ORDERED: METOCLOPRAMIDE HCL INJECTION 10 MG/2 ML VIAL IM ONE (18:09)
[2019-02-27] MEDS ORDERED: diphenhydrAMINE HCL 25 MG CAPSULE (FP) PO ONE (18:09)
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
== END 2019-02-27 18:35 | disposition left against medical advice (07) ==
LOC: JERFT 17:40
DX: R51 Headache (principal); E11.9 Type 2 diabetes mellitus without complications; E78.00 Pure hypercholesterolemia, unspecified; E07.9 Disorder of thyroid, unspecified; Z98.84 Bariatric surgery status
CPT/HCPCS: 99281-25

== ENCOUNTER 2019-06-06 06:09 | Emergency (ER) | payer OTHER ==
[2019-06-06 07:04] VITALS: BP 122/83; PULSE 79; TEMP 98.1; BMI 29.2
[2019-06-06] MEDS ORDERED: DIPHTH,PERTUSS(ACELL),TET 0.5 ML DISP.SYRIN IM ONE ×2 (07:34→07:42)
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
== END 2019-06-06 08:43 | disposition home or self-care (01) ==
LOC: JER 06:09
PROC: 3E0234Z Introduction of Serum, Toxoid and Vaccine into Muscle, Percutaneous Approach (ICD-10-PCS; principal; 2019-06-06)
PROC: 0HQFXZZ Repair Right Hand Skin, External Approach (ICD-10-PCS; 2019-06-06)
DX: S61.216A Laceration without foreign body of right little finger without damage to nail, initial encounter (principal); W25.XXXA Contact with sharp glass, initial encounter; Y93.89 Activity, other specified; Y92.59 Other trade areas as the place of occurrence of the external cause; Y99.8 Other external cause status; E11.9 Type 2 diabetes mellitus without complications; E78.00 Pure hypercholesterolemia, unspecified; K21.9 Gastro-esophageal reflux disease without esophagitis; E07.9 Disorder of thyroid, unspecified
CPT/HCPCS: 73140-TC-RT-FY; 90715; 99283-25

== ENCOUNTER 2019-07-02 12:01 | Emergency (ER) | payer OTHER ==
[2019-07-02 12:16] VITALS: BP 124/77; PULSE 87; TEMP 98; BMI 29.8
--- NOTE | 2019-07-02 12:53 | PDOC ---
Suture Removal/Wound Check HPI - History of Present Illness Chief Complaint: Suture/Staple Removal (other) Stated Complaint: HAND LAC. Time Seen by Provider: 07/02/19 12:52 History Source: Yes: Patient Past History - Travel Traveled outside of the country in the last 30 days: No Close contact w/someone who was outside of country & ill: No - Past Medical History Allergies/Adverse Reactions: Allergies Allergy/AdvReac Type Severity Reaction Status Date / Time No Known Drug Allergies Allergy Verified 07/02/19 12:13 Home Medications: Ambulatory Orders Famotidine 20 mg PO DAILY 05/02/18 Anemia: No Asthma: No Cancer: No Cardiac Disorders: No CVA: No COPD: No CHF: No Dementia: No Diabetes: Yes (H/O BORDERLINE-WAS ON METFORMIN) GI Disorders: Yes (REFLUX, H/O H PYLORI 09/2014) Disorders: No HTN: No Hypercholesterolemia: Yes Liver Disease: No Seizures: No Thyroid Disease: Yes (H/O THYROID DISEASE) - Surgical History Abdominal Surgery: Yes (GASTRIC BAND to [id number]) Appendectomy: No Cardiac Surgery: No Cholecystectomy: No Lung Surgery: No Neurologic Surgery: No Orthopedic Surgery: No - Immunization History Immunization Up to Date: Yes - Psycho Social/Smoking Cessation Hx Smoking Status: No Smoking History: Unknown if ever smoked Have you smoked in the past 12 months: No Number of Cigarettes Smoked Daily: 1 If you are a former smoker, when did you quit?: LAST HOOKA USE 06/2015 'Breaking Loose' booklet given: 10/12/13 Hx Alcohol Use: No Drug/Substance Use Hx: No Substance Use Type: None Hx Substance Use Treatment: No *Physical Exam - Vital Signs Last Vital Signs Temp Pulse Resp BP Pulse Ox 98 F 87 16 124/77 100 07/02/19 12:13 07/02/19 12:13 07/02/19 12:13 07/02/19 12:13 07/02/19 12:13 - Physical Exam 07/02/19 13:11 Chief complaint: Suture removal Patient is a healthy 23-year-old female who was seen here on June 06, had sutures placed to the right little finger. Patient came to have sutures removed. Patient denies any problems, some of the sutures have already come out. GENERAL/CONSTITUTIONAL: No fever, weakness. dizziness HEAD, EYES, EARS, NOSE AND THROAT: No change in vision. No ear pain or discharge. No sore throat. CARDIOVASCULAR: No chest pain RESPIRATORY: No shortness of breath or cough GASTROINTESTINAL: No pain, nausea, vomiting, diarrhea or constipation GENITOURINARY: No dysuria MUSCULOSKELETAL: No neck or back pain SKIN: No rash, + sutures in place NEUROLOGIC: No headache, vertigo, loss of consciousness, or loss of sensation. GENERAL: The patient is awake, alert, and fully oriented, in no acute distress. HEAD: Normal with no signs of trauma. EYES: Pupils equal, round and reactive to light, sclera anicteric, conjunctiva clear. ENT: pharynx: no erythema, no exudate, uvula midline NECK: supple CHEST: clear, nontender, rr ABD: soft, nontender BACK: no tenderness or signs of injury EXTREMITIES: Right little finger with [address], some rough skin, one area where there is a bump, but no obvious visible suture underneath. No signs of infection, full range of motion, neurovascular intact. Rest of extremities, normal range of motion, no edema. NEUROLOGICAL: Normal speech, normal gait. SKIN: Warm, Dry Medical Decision Making - Medical Decision Making 07/02/19 13:13 Healthy 23-year-old female to have sutures removed, they have been in since June 06. 2 sutures remain, no signs of infection. There is one area that has a bump. Patient is aware that if that does not get better she should follow-up with plastic surgeon to see if she needs a procedure or if there is something buried underneath like a suture. Discussed issues, findings, results, applicable medications and treatments and follow-up. All these were understood and all questions were answered Discharge - Discharge Information Problems reviewed: Yes Clinical Impression/Diagnosis: Visit for suture removal Condition: Stable Disposition: HOME - Admission No - Follow up/Referral Referrals: Yessenia Mclean [Primary Care Provider] - - Patient Discharge Instructions Patient Printed Discharge Instructions: DI for Suture Removal Additional Instructions: Clean with soap and water 2-3 times daily, apply bacitracin Have her reevaluated if redness, pus, fever or getting worse Followup with your doctor - Post Discharge Activity
== END 2019-07-02 13:05 | disposition home or self-care (01) ==
LOC: JERFT 12:01
DX: Z48.02 Encounter for removal of sutures (principal)
CPT/HCPCS: 99281-25

== ENCOUNTER 2020-02-07 12:46 | Emergency (ER) | payer OTHER ==
--- NOTE | 2020-02-07 12:52 | PDOC ---
Rapid Medical Evaluation Time Seen by Provider: 02/07/20 12:48 Medical Evaluation: Allergies Allergy/AdvReac Type Severity Reaction Status Date / Time No Known Drug Allergies Allergy Verified 07/02/19 12:13 02/07/20 12:48 24 year old female smoker presenting with cough and congestion (covid negative) now with hemoptysis x 3 dime sized. PE: CTA RRR VSS Plan: Chest XR
[2020-02-07 12:54] VITALS: BP 122/88; PULSE 82; TEMP 98.2; BMI 31.1
--- NOTE | 2020-02-07 13:02 | PDOC ---
History of Present Illness - General Chief Complaint: Cold Symptoms Stated Complaint: BLOOD IN SPUTUM Time Seen by Provider: 02/07/20 12:48 History Source: Patient Exam Limitations: No Limitations - History of Present Illness Initial Comments: 02/07/20 12:55 24 year odl female no pmhx presenting to the ED with 1 week of cough and congestion. Pt tested negative for COVID at [facility]. Pt is now complaining of 3 episodes of dime sized hemopysis without associated SOB or chest pain. Pt is not on control, no recent travel. Pt otherwise denies: fevers, chills, syncope, lightheadedness, dizziness, headaches, neck pain, chest pain, shortness of breath, palpitations, back pain, abdominal pain, nausea, vomiting, diarrhea, constipation. Past History - Medical History Allergies/Adverse Reactions: Allergies Allergy/AdvReac Type Severity Reaction Status Date / Time No Known Drug Allergies Allergy Verified 02/07/20 12:49 Home Medications: Ambulatory Orders Famotidine 20 mg PO DAILY 05/02/18 Anemia: No Asthma: No Cancer: No Cardiac Disorders: No CVA: No COPD: No CHF: No Dementia: No Diabetes: Yes (H/O BORDERLINE-WAS ON METFORMIN) GI Disorders: Yes (REFLUX, H/O H PYLORI 09/2014) Disorders: No HTN: No Hypercholesterolemia: Yes Liver Disease: No Seizures: No Thyroid Disease: Yes (H/O THYROID DISEASE) - Surgical History Abdominal Surgery: Yes (GASTRIC BAND to [id number]) Appendectomy: No Cardiac Surgery: No Cholecystectomy: No Lung Surgery: No Neurologic Surgery: No Orthopedic Surgery: No - Reproductive History Is Patient Now?: No - Immunization History Immunization Up to Date: Yes - Psycho-Social/Smoking History Smoking Status: No Smoking History: Current every day smoker Have you smoked in the past 12 months: Yes Number of Cigarettes Smoked Daily: 0 If you are a former smoker, when did you quit?: LAST HOOKA USE 06/2015 Information on smoking cessation initiated: Yes 'Breaking Loose' booklet given: 10/12/13 - Substance Abuse Hx (Audit-C & DAST Scrn) How often the patient has a drink containing alcohol: Never Score: In Men: 4 or > Positive; In Women: 3 or > Positive: 0 Screen Result (Pos requires Nsg. Audit-10AR): Negative In the last yr the pt used illegal drug/Rx for NonMed reason: No Score: Yes response is considered Positive: 0 Screen Result (Positive result requires Nsg. DAST-10): Negative *Physical Exam - Vital Signs Last Vital Signs Temp Pulse Resp BP Pulse Ox 98.2 F 82 18 122/88 100 02/07/20 12:49 02/07/20 12:49 02/07/20 12:49 02/07/20 12:49 02/07/20 12:49 - Physical Exam 02/07/20 12:58 Gen: AAOx 3, no acute distress, comfortable, no signs of respiratory distress HENT: atraumatic, normocephalic with no laceration or contusion. Nasal mucosa without erythema. Oropharynx without erythema or exudates. Mucous membranes moist. EYES: PERRL, EOM intact, conjunctiva pink NECK: supple; trachea midline; no JVD, no lymphadenopathy, or thyromegaly CV: RRR no murmurs, gallops, or rubs. CHEST: CTA b/l no wheezing, rales or rhonchi ABD: +BS/ND. no TTP; soft, no rebound, no guarding EXTREMITY: no cyanosis or erythema. 2+ dorsalis pedis, posterior tibial, and radial pulse. No pedal edema; no calf swelling or tenderness SKIN: no rash, warm and dry, no diaphoresis HEME: no purpura or ecchymosis NEURO: normal speech, CN II-XII intact, sensation intact, normal gait, no cerebellar deficits MS: 5/5 strength in all extremities, FROM intact in all extremities. ED Treatment Course - RADIOLOGY Radiology Studies Ordered: Category Date Time Status CHEST PA & LAT [RAD] Stat Radiology 02/07/20 12:52 Ordered Medical Decision Making - Medical Decision Making 02/07/20 12:58 24 year old female with cough and congestion VSS PERC negative Well's score low Plan: Chest XR Covid swab If CXr negative will discharge with close PCP follow up Chest XR negative for any acute pathology Pts symptoms most likely viral in nature and blood in phelm most likely from posttussive trauma and benign. isolation precautions given until COVID results are back Pt appears well and is safe and stable for discharge with strict return precautions including signs and symptoms requring immediate return to the ED Supportive care instructions explained and given to pt. Reasons to return emergently to ER explained and given. Importance of follow up with PMD and other specialists as indicated stressed to pt. Pt verbalized understanding of instructions. Pt to follow up with PMD in 2 days. 02/07/20 13:02 Discharge - Discharge Information Problems reviewed: Yes Clinical Impression/Diagnosis: Viral URI with cough Condition: Stable Disposition: HOME - Follow up/Referral - Patient Discharge Instructions Patient Printed Discharge Instructions: DI for Acute Bronchitis - Post Discharge Activity Work/Back to School Note: Back to Work
--- OUTSIDE RECORDS SUMMARY | 2020-02-07 13:20 | XMS ---
:1995 Author Organization [facility] Care Team Providers Name Role Phone GARLAND Unavailable Unavailable ED STAFF PHYSICIAN, STAFF Unavailable Unavailable Re-disclosure Warning The records that you are about to access may contain information from federally- assisted alcohol or drug abuse programs. If such information is present, then the following federally mandated warning applies: This information has been disclosed to you from records protected by federal confidentiality rules (42 CFR part 2). The federal rules prohibit you from making any further disclosure of this information unless further disclosure is expressly permitted by the written consent of the person to whom it pertains or as otherwise permitted by 42 CFR part 2. A general authorization for the release of medical or other information is NOT sufficient for this purpose. The Federal rules restrict any use of the information to criminally investigate or prosecute any alcohol or drug abuse patient.The records that you are about to access may contain highly sensitive health information, the redisclosure of which is protected by Article 27-F of the [facility] Public Health law. If you continue you may haveaccess to information: Regarding HIV / AIDS; Provided by facilities licensed or operated by the [facility] Office of Mental Health; or Provided by the [facility] Office for People With Developmental Disabilities. If such information is present, then the following [facility] mandated warning applies: This information has been disclosed to you from confidential records which are protected by state law. State law prohibits you from making any further disclosure of this information without the specific written consent of the person to whom it pertains, or as otherwise permitted by law. Any unauthorized further disclosure in violation of state law may result in a fine or usp sentence or both. A general authorization for the release of medical or other information is NOT sufficient authorization for further disclosure. Encounters Encounter Providers Location Date Indications Data Source(s ) Outpatient Attender: 08/28/2019 Z03.818 [facility] emely KARAdmitter: GARLAND 04:00:00 PM [facility] EDT [facility] Z03.818 Emergency Attender: STAFF ED STAFF H 06/06/2019 03:28:00 AM [facility] PHYSICIAN EST - 06/06/2019 07:07:00 Center AM EST Patient discharged. Insurance Providers Payer name Policy Policy ID Covered Covered Policy Plan Info rmation type / alliance party ID alliance party's Ariza Coverage relationship type to ariza CIGNA [id number] SP [id number] 303 HEALTHCARE HMO G H I - O [id number] 01 [id number] [facility] C I G N A O [id number] 01 [id number] H M O O NO FAULT [id number] SP [id number] CIGNA [id number] FA [id number] 303 HEALTHCARE HMO [place] [id number] SP [id number] Problems, Conditions, and Diagnoses Code Display Name Description Problem Type Effective Data Sour ce(s) Dates Z03.818 Encounter for ENCNTR FOR OBS Diagnosis 08/28/2019 [facility] for FOR SUSP EXPSR 04:00:00 PM Coun ty Health suspected TO OT BIOLG EDT Care Corpor[facility] tion exposure to other AGENTS RULED OUT biological agents ruled out Z53.21 Procedure and PROC/TRTMT NOT Diagnosis 06/06/2019 [facility] treatment not CRD OUT D/T PT 03:28:00 AM Medica l Center carried out due LV BEF SEEN BY EST to patient TH CARE PROV leaving prior to being seen by health care provider Y99.9 Unspecified UNSPECIFIED Diagnosis 06/06/2019 [place] [facility] external cause EXTERNAL CAUSE 03:28:00 AM Medic al Center status STATUS EST Y92.[address] UNSPECIFIED Diagnosis 06/06/2019 [facility] or not applicable PLACE OR NOT 03:28:00 AM [facility] APPLICABLE EST Y93.9 Activity, ACTIVITY, Diagnosis 06/06/2019 [facility] unspecified UNSPECIFIED 03:28:[address] EST W25.XXXA Contact with CONTACT WITH Diagnosis 06/06/2019 [facility] [place], [place], 03:28:00 AM Medical C enter initial encounter INITIAL EST ENCOUNTER S61.216A Laceration LAC W/O FB OF R Diagnosis 06/06/2019 [facility] without foreign LITTLE FINGER 03:28:00 AM Medic al Center body of right W/O DAMAGE TO EST little finger NAIL, INIT without damage to nail, initial encounter Results ID Date Data Source [id number] 08/28/2019 12:00:00 AM EDT [facility] Name Value Range Interpretation Code Description Data [facility] rce(s) Supporting Document(s ) 2019-nCoV [facility] RNA XXX NIKKI+probe- Imp This lab was ordered by [facility] and reported by [employer] Procedure Social History Code Duration Value Status Description Data Source(s ) Smoking 06/06/2019 Denies Ever completed Denies Ever Smoked [facility] 03:32:00 AM EST Smoked Medical C enter
== END 2020-02-07 13:24 | disposition home or self-care (01) ==
LOC: JER 12:46
DX: R05 Cough (principal); J06.9 Acute upper respiratory infection, unspecified
CPT/HCPCS: 71046-TC-FY; 99284-25; C9803; U0003

== ENCOUNTER 2020-02-07 23:19 | Emergency (ER) | payer OTHER ==
--- OUTSIDE RECORDS SUMMARY | 2020-02-07 23:42 | XMS ---
:1995 Author Organization [facility] Care Team Providers Name Role Phone ED STAFF PHYSICIAN, STAFF Unavailable Unavailable MADISON HAQUE Unavailable Unavailable Re-disclosure Warning The records that [...] is protected by Article 27-F of the [facility] Public Health law. If you continue you may haveaccess to information: Regarding HIV / AIDS; Provided by facilities licensed or operated by the [facility] Office of Mental Health; or Provided by the [facility] Office for People With Developmental Disabilities. If such information is present, then the following [facility] mandated warning applies: This information has [...] law may result in a fine or [place] health [facility] sentence or both. A general authorization for the release of medical or other information is NOT sufficient authorization for further disclosure. Encounters Encounter Providers Location Date Indications Data Source(s ) Outpatient Attender: GARLAND 08/28/2019 Z03.818 [facility] LUCIUSdmitter: 04:00:00 PM Health C are GARLAND MADISON [employer] SCM-GL Z03.818 Emergency Attender: STAFF ED STAFF H 06/06/2019 03:28:00 AM [facility] PHYSICIAN EST - 06/06/2019 07:07:00 Center AM EST Patient discharged. Insurance Providers Payer name Policy Policy ID Covered Covered Policy Plan Info rmation type / alliance party ID alliance party's Ariza Coverage relationship type to ariza CIGNA [id number] SP [id number] 303 HEALTHCARE HMO G H I - O [id number] 01 [id number] [facility] C I G N A O [id number] 01 [id number] H M O O NO FAULT [id number] SP 049 [id number] CIGNA [id number] FA [id number] 303 HEALTHCARE HMO [place] [id number] SP 049 [id number] Problems, Conditions, and Diagnoses Code Display Name Description Problem Type Effective Data Sour ce(s) Dates Z03.818 Encounter for ENCNTR FOR OBS Diagnosis 08/28/2019 [place] [facility] observation for FOR SUSP EXPSR 04:00:00 PM Coun ty Health suspected TO OT BIOLG EDT Care Corpor[facility] tion exposure to other AGENTS RULED OUT biological agents ruled out Z53.21 Procedure and PROC/TRTMT NOT Diagnosis 06/06/2019 [facility] treatment not CRD OUT D/T PT 03:28:00 AM Medica l Center carried out due LV BEF SEEN BY EST to patient TH CARE PROV leaving prior to being seen by health care provider Y99.9 Unspecified UNSPECIFIED Diagnosis 06/06/2019 [facility] external cause EXTERNAL CAUSE 03:28:00 AM Medic al Center status STATUS EST Y92.[address] UNSPECIFIED Diagnosis 06/06/2019 [facility] or not applicable PLACE OR NOT 03:28:00 AM [facility] APPLICABLE EST Y93.9 Activity, ACTIVITY, Diagnosis 06/06/2019 [...] initial encounter Results ID Date Data Source [id number] 08/28/2019 12:00:00 AM EDT [facility] Name Value Range Interpretation Code Description Data [facility] rce(s) Supporting Document(s ) 2019-nCoV [facility] RNA XXX NIKKI+probe- Imp This lab was ordered by [facility] and reported by [employer] Procedure Social History Code Duration Value Status Description Data Source(s ) Smoking 06/06/2019 Denies Ever completed Denies Ever Smoked [facility] 03:32:00 AM EST Smoked Medical C enter
[2020-02-07 23:47] VITALS: BP 143/83; PULSE 76; TEMP 99.1; BMI 28.3
--- NOTE | 2020-02-08 00:36 | PDOC ---
History of Present Illness - General Chief Complaint: Cold Symptoms Stated Complaint: RE VISIT/ COUGH Time Seen by Provider: 02/08/20 00:06 History Source: Patient - History of Present Illness Initial Comments: 02/08/20 00:49 24-year-old female complains of cough for the last 2 weeks denies fever/chills seen in this ER earlier was diagnosed with viral URI cough. Patient had a chest x-ray which was negative he COVID is pending. Patient reports that the last 2 days she has been having blood-tinged sputum with cough pain to the upper back Worse with movement. Past History - Medical History Allergies/Adverse Reactions: Allergies Allergy/AdvReac Type Severity Reaction Status Date / Time No Known Drug Allergies Allergy Verified 02/07/20 23:46 Home Medications: Ambulatory Orders Famotidine 20 mg PO DAILY 05/02/18 Albuterol Sulfate Inhaler - [Ventolin HFA Inhaler -] 2 inh PO Q6H PRN #1 inh Azithromycin [Zithromax 250mg Tablets -] 250 mg PO UTDICT #6 tab 02/08/20 Promethazine/Dextromethorphan [Promethazine-Dm Syrup] 5 ml PO QID PRN #90 ml 02/08/20 Anemia: No Asthma: No Cancer: No Cardiac Disorders: No CVA: No COPD: No CHF: No Dementia: No Diabetes: Yes (H/O BORDERLINE-WAS ON METFORMIN) GI Disorders: Yes (REFLUX, H/O H PYLORI 09/2014) Disorders: No HTN: No Hypercholesterolemia: Yes Liver Disease: No Seizures: No Thyroid Disease: Yes (H/O THYROID DISEASE) - Surgical History Abdominal Surgery: Yes (GASTRIC BAND to [id number]) Appendectomy: No Cardiac Surgery: No Cholecystectomy: No Lung Surgery: No Neurologic Surgery: No Orthopedic Surgery: No - Reproductive History Is Patient Now?: No - Immunization History Immunization Up to Date: Yes - Psycho-Social/Smoking History Smoking Status: No Smoking History: Never smoked Have you smoked in the past 12 months: No Number of Cigarettes Smoked Daily: 0 If you are a former smoker, when did you quit?: LAST HOOKA USE 06/2015 Information on smoking cessation initiated: No 'Breaking Loose' booklet given: 10/12/13 - Substance Abuse Hx (Audit-C & DAST Scrn) How often the patient has a drink containing alcohol: Never Score: In Men: 4 or > Positive; In Women: 3 or > Positive: 0 Screen Result (Pos requires Nsg. Audit-10AR): Negative In the last yr the pt used illegal drug/Rx for NonMed reason: No Score: Yes response is considered Positive: 0 Screen Result (Positive result requires Nsg. DAST-10): Negative Review of Systems - Review of Systems Able to Perform ROS?: Yes Is the patient limited Slovak proficient: No Respiratory: Yes: Cough *Physical Exam - Vital Signs Last Vital Signs Temp Pulse Resp BP Pulse Ox 99.1 F 76 18 143/83 99 02/07/20 23:35 02/07/20 23:35 02/07/20 23:35 02/07/20 23:35 02/07/20 23:35 - Physical Exam General Appearance: Yes: Appropriately Dressed Respiratory/Chest: positive: Chest Tender (left posterior chest negative), Lungs Clear, Normal Breath Sounds Cardiovascular: positive: Regular Rhythm, Regular Rate Integumentary: positive: Normal Color, Dry, Warm Neurologic: positive: Fully Oriented, Alert, Normal Mood/Affect ED Progress Note - Progress Note Progress Note: 02/08/20 03:24 A: bronchitis; costochondral pain P: albuterol z-pack tylenol promethazine Discharge - Discharge Information Problems reviewed: Yes Clinical Impression/Diagnosis: Bronchitis, Costochondral pain Condition: Fair Disposition: HOME - Additional Discharge Information Prescriptions: Promethazine/Dextromethorphan [Promethazine-Dm Syrup] 5 ml PO QID PRN #90 ml PRN Reason: Cough Albuterol Sulfate Inhaler - [Ventolin HFA Inhaler -] 2 inh PO Q6H PRN #1 inh PRN Reason: Cough Azithromycin [Zithromax 250mg Tablets -] 250 mg PO UTDICT #6 tab - Follow up/Referral Referrals: Mychal Doll MD [Primary Care Provider] - - Patient Discharge Instructions Patient Printed Discharge Instructions: DI for Common Cold, [facility] COVID-19 Isolation Protocol Additional Instructions: Drink plenty of fluids. Take azithromycin as prescribed. Use promethazine as needed for cough you may use albuterol inhaler. Return to the emergency room for any worsening symptoms - Post Discharge Activity Work/Back to School Note: Back to Work
[2020-02-08] MEDS ORDERED: ACETAMINOPHEN 500 MG TABLET (FP) PO ONE (00:55)
[2020-02-08] MEDS ORDERED: ACETAMINOPHEN 500 MG TABLET (FP) ONE (00:59)
== END 2020-02-08 01:04 | disposition home or self-care (01) ==
LOC: JER 23:19
DX: J20.9 Acute bronchitis, unspecified (principal); R07.1 Chest pain on breathing
CPT/HCPCS: 99283-25

== ENCOUNTER 2020-02-08 12:57 | Inpatient (IN) | payer OTHER ==
[2020-02-08 13:10] VITALS: BMI 28.3
--- OUTSIDE RECORDS SUMMARY | 2020-02-08 13:23 | XMS ---
[...] is protected by Article 27-F of the [facility] Public Health law. If you continue you may haveaccess to information: Regarding HIV / AIDS; Provided by facilities licensed or operated by the [facility] Office of Mental Health; or Provided by the [facility] Office for People With Developmental Disabilities. If such information is present, then the following [facility] mandated warning applies: This information has been [...] law may result in a fine or skilled nursing sentence or both. A general authorization for the release of medical or other information is NOT sufficient authorization for further disclosure. Encounters Encounter Providers Location Date Indications Data Source(s ) Outpatient Attender: 08/28/2019 Z03.818 [facility] emely KARAdmitter: GARLAND 04:00:00 PM [facility] EDT [facility] Z03.818 Emergency Attender: STAFF ED STAFF H 06/06/2019 03:28[facility] - 06/06/2019 07:07:00 Center AM EST Patient discharged. Insurance Providers Payer name Policy Policy ID Covered Covered Policy Plan Info rmation type / democrat ID democrat's Ariza Coverage relationship type to ariza CIGNA [id number] SP [id number] 303 HEALTHCARE HMO G H I - O [id number] [id number] [facility] C I G N A O [id number] 01 [id number] 303 H M O O NO FAULT [id number] SP 049 [id number] CIGNA [id number] FA [id number] 303 HEALTHCARE HMO [place] [id number] SP 049 [id number] Problems, Conditions, and Diagnoses Code Display Name Description Problem Type Effective Data Sour ce(s) Dates Z03.818 Encounter for ENCNTR FOR OBS Diagnosis 08/28/2019 [facility] observation for FOR SUSP EXPSR 04:00:00 PM Coun ty Health suspected TO OT BIOLG EDT Care Corpor[facility] tion exposure to other AGENTS RULED OUT biological agents ruled out Z53.21 Procedure and PROC/TRTMT NOT Diagnosis 06/06/2019 [facility] treatment not CRD OUT D/T PT 03:28:00 AM Medica l Center carried out due LV BEF SEEN BY EST to patient [facility] CARE PROV leaving prior to being seen by health care provider Y99.9 Unspecified UNSPECIFIED Diagnosis 06/06/2019 [facility] external cause EXTERNAL CAUSE 03:28:00 AM Medic al Center status STATUS EST Y92.[address] UNSPECIFIED Diagnosis 06/06/2019 [facility] [place] or not applicable PLACE OR NOT 03:28:00 AM [facility] APPLICABLE EST Y93.9 Activity, [...] initial encounter Results ID Date Data Source [id number] 08/28/2019 12:00:00 AM EDT [facility] Name Value Range Interpretation Code Description Data [facility] rce(s) Supporting Document(s ) 2019-nCoV [facility] RNA XXX NIKKI+probe- Imp This lab was ordered by [facility] and reported by [employer] Procedure Social History Code Duration Value Status Description Data Source(s ) Smoking 06/06/2019 Denies Ever completed Denies Ever Smoked [facility] 03:32:00 AM EST Smoked Medical C enter
--- NOTE | 2020-02-08 14:30 | PDOC ---
History of Present Illness - General Chief Complaint: Hemoptysis Stated Complaint: COUGH/PAIN Time Seen by Provider: 02/08/20 13:30 History Source: Patient - History of Present Illness Timing/Duration: reports: other Associated Symptoms: reports: chest pain/soreness, cough, shortness of breath. denies: fever/chills Past History - Medical History Allergies/Adverse Reactions: Allergies Allergy/AdvReac Type Severity Reaction Status Date / Time No Known Drug Allergies Allergy Verified 02/07/20 23:46 Home Medications: Ambulatory Orders Famotidine 20 mg PO DAILY 05/02/18 Albuterol Sulfate Inhaler - [Ventolin HFA Inhaler -] 2 inh PO Q6H PRN #1 inh 02/08/20 Azithromycin [Zithromax 250mg Tablets -] 250 mg PO UTDICT #6 tab 02/08/20 Promethazine/Dextromethorphan [Promethazine-Dm Syrup] 5 ml PO QID PRN #90 ml 02/08/20 Anemia: No Asthma: No Cancer: No Cardiac Disorders: No CVA: No COPD: No CHF: No Dementia: No Diabetes: Yes (H/O BORDERLINE-WAS ON METFORMIN) GI Disorders: Yes (REFLUX, H/O H PYLORI 09/2014) Disorders: No HTN: No Hypercholesterolemia: Yes Liver Disease: No Seizures: No Thyroid Disease: Yes (H/O THYROID DISEASE) - Surgical History Abdominal Surgery: Yes (GASTRIC BAND to [id number]) Appendectomy: No Cardiac Surgery: No Cholecystectomy: No Lung Surgery: No Neurologic Surgery: No Orthopedic Surgery: No - Reproductive History Is Patient Now?: No - Immunization History Immunization Up to Date: Yes - Psycho-Social/Smoking History Smoking Status: No Smoking History: Current every day smoker Have you smoked in the past 12 months: No Number of Cigarettes Smoked Daily: 0 If you are a former smoker, when did you quit?: LAST HOOKA USE 06/2015 Information on smoking cessation initiated: No 'Breaking Loose' booklet given: 10/12/13 - Substance Abuse Hx (Audit-C & DAST Scrn) How often the patient has a drink containing alcohol: Never Score: In Men: 4 or > Positive; In Women: 3 or > Positive: 0 Screen Result (Pos requires Nsg. Audit-10AR): Negative In the last yr the pt used illegal drug/Rx for NonMed reason: No Score: Yes response is considered Positive: 0 Screen Result (Positive result requires Nsg. DAST-10): Negative Review of Systems - Review of Systems Constitutional: No: Chills, Fever, Unexplained wgt Loss Respiratory: Yes: Cough, Shortness of Breath, Hemoptysis Cardiac (ROS): Yes: Chest Pain *Physical Exam - Vital Signs Last Vital Signs Temp Pulse Resp BP Pulse Ox 98.8 F 89 18 135/97 100 02/08/20 13:03 02/08/20 13:03 02/08/20 13:03 02/08/20 13:03 02/08/20 13:03 - Physical Exam General Appearance: Yes: Appropriately Dressed. No: Apparent Distress HEENT: positive: Normal Voice Neck: positive: Supple Respiratory/Chest: positive: Lungs Clear, Normal Breath Sounds. negative: Resp iratory Distress Cardiovascular: positive: Regular Rate, S1, S2 Integumentary: positive: Dry, Warm Neurologic: positive: Fully Oriented, Alert, Normal Mood/Affect ED Treatment Course - LABORATORY CBC & Chemistry Diagram: 02/08/20 14:50 02/08/20 14:36 - ADDITIONAL ORDERS Additional order review: Laboratory Results 02/08/20 13:45 D-Dimer 8872 H - RADIOLOGY Radiology Studies Ordered: Category Date Time Status CHEST CTA [CT] Stat CT Scan 02/08/20 14:24 Ordered Medical Decision Making - Medical Decision Making 02/08/20 14:26 24-year-old female with no past medical history, admits to smoking marijuana and hookah regularly, here with persistent hemoptysis. Patient states 2 weeks ago she started coughing and at some point noticed bright red blood in her phlegm. Also complaining of pleuritic chest pain and shortness of breath. Has had multiple negative COVID PCR tests including at [facility] in ED yesterday. Chest x-ray was unremarkable. Denies any fever or chills. No rec ent travel or known sick contacts. Patient concerned because she has a family history of blood clots w/ mother on lifelong AC. Pt states her doctor sent her in for a CAT scan of her chest see exam Hemoptysis Neg covid and CXR yesterday in ED No known RF for TB Stable in ED but c/o ? sob -will send d-dimer given +fmhx of thrombosis 02/08/20 16:25 D-dimer over 8000! Patient currently in CT 02/08/20 18:10 02/08/20 18:12 CT read as multiple PEs including to left lower lobe lobar artery, left segmental and right segmental PEs with possible L basilar infarct. Pt stable but reports some CP and ? sob. Will place on oxygen and start lovenox as discussed with Dr. Bautista. Will arrange admission at this time. Covid PCR send from ED yesterday was negative Discharge - Discharge Information Problems reviewed: Yes Clinical Impression/Diagnosis: Pulmonary embolism Qualifiers: Pulmonary embolism type: unspecified Chronicity: acute Acute cor pulmonale presence: unspecified Qualified Code(s): I26.99 - Other pulmonary embolism without acute cor pulmonale Condition: Stable - Admission Yes - Follow up/Referral Referrals: Mychal Doll MD [Primary Care Provider] - - Patient Discharge Instructions - Post Discharge Activity
[2020-02-08 15:43] LABS: BASO % 0.5 % (0-2.0); HEMATOCRIT 42.4 % (32.4-45.2); HEMOGLOBIN 14.1 GM/dL (10.7-15.3); LYMPH % 13.3 % (8-40); MCH 31.2 pg (25.7-33.7); MCHC 33.3 g/dl (32.0-36.0); MEAN CELL VOLUME 93.8 fl (80-96); MEAN PLT VOLUME 7.7 fl (7.5-11.1); MONO % 5.6 % (3.8-10.2); NEUT % 78.6 % (42.8-82.8); PLATELET COUNT 276 K/MM3 (134-434); RBC 4.52 M/mm3 (3.60-5.2); RDW 12.9 % (11.6-15.6); WHITE BLOOD COUNT 11.8 K/mm3 (4.0-10.0)
[2020-02-08 16:04] LABS: ALBUMIN 3.4 g/dl (3.4-5.0); ALK PHOS 100 U/L (45-117); ANION GAP 6 MMOL/L (8-16); BILIRUBIN,TOTAL 0.5 mg/dL (0.2-1); BLOOD UREA NITROGEN 10.2 mg/dL (7-18); CALCIUM 9.1 mg/dL (8.5-10.1); CHLORIDE 105 mmol/L (98-107); CO2 28 mmol/L (21-32); CREATININE 0.7 mg/dL (0.55-1.3); GLUCOSE,RANDOM 97 mg/dL (74-106); POTASSIUM 4.1 mmol/L (3.5-5.1); SGOT/AST 13 U/L (15-37); SGPT/ALT 17 U/L (13-61); SODIUM 139 mmol/L (136-145)
[2020-02-08 17:24] LABS: N-TERMINAL BNP 91.3 pg/ml (5-125)
--- NOTE | 2020-02-08 18:08 | PDOC ---
*Physical Exam - Vital Signs Last Vital Signs Temp Pulse Resp BP Pulse Ox 98.8 F 89 18 135/97 100 02/08/20 13:03 02/08/20 13:03 02/08/20 13:03 02/08/20 13:03 02/08/20 13:03 Heart Score/ECG Review #1 ECG reviewed & interpreted by me at: 18:35 General ECG Interpretation: Sinus Rhythm, Normal Rate (72), Normal Intervals (qtc 433), No acute ischemic changes (nonspecific t wave flattening V5-6) ED Treatment Course - LABORATORY CBC & Chemistry Diagram: 02/08/20 14:50 02/08/20 14:36 - ADDITIONAL ORDERS Additional order review: Laboratory Results 02/08/20 02/08/20 02/08/20 14:50 14:36 13:45 D-Dimer 8872 H Sodium 139 Potassium 4.1 Chloride 105 Carbon Dioxide 28 Anion Gap 6 L BUN 10.2 Creatinine 0.7 Est GFR (CKD-EPI)AfAm 140.55 Est GFR (CKD-EPI)NonAf 121.27 Random Glucose 97 Calcium 9.1 Total Bilirubin 0.5 AST 13 L ALT 17 Alkaline Phosphatase 100 Troponin I < 0.02 B-Natriuretic Peptide 91.3 Total Protein 7.0 Albumin 3.4 Serum , Qual Negative 02/08/20 14:50 RBC 4.52 MCV 93.8 MCHC 33.3 RDW 12.9 MPV 7.7 Neutrophils % 78.6 Lymphocytes % 13.3 Monocytes % 5.6 Eosinophils % 2.0 D Basophils % 0.5 Medical Decision Making - Medical Decision Making 02/08/20 18:06 Patient seen and evaluated with the nurse practitioner. I agree with the overall evaluation, assessment, and management with the following summary of visit: 24y/o F progressive sob/cough and now hemoptysis, family history of hypercoag. vss, exam as noted dimer elevated, cta with multiple peripheral PEs. trop negative. anticoagulate and admit Discharge - Discharge Information Problems reviewed: Yes Clinical Impression/Diagnosis: Pulmonary embolism Qualifiers: Pulmonary embolism type: unspecified Chronicity: acute Acute cor pulmonale presence: unspecified Qualified Code(s): I26.99 - Other pulmonary embolism without acute cor pulmonale Condition: Stable - Follow up/Referral Referrals: Mychal Doll MD [Primary Care Provider] - - Patient Discharge Instructions - Post Discharge Activity
[2020-02-08] MEDS ORDERED: ENOXAPARIN NA (PORCINE) 80 MG/0.8 ML DISP.SYRIN SQ ONE ×2 (18:10→18:12)
[2020-02-08] MEDS ORDERED: SODIUM CHLORIDE 1,000 ML IV STA (18:10)
--- OUTSIDE RECORDS SUMMARY | 2020-02-08 19:07 | XMS ---
[...] is protected by Article 27-F of the [facility] Public Health law. If you continue you may haveaccess to information: Regarding HIV / AIDS; Provided by facilities licensed or operated by the [facility] Office of Mental Health; or Provided by the [facility] Office for People With Developmental Disabilities. If such information is present, then the following [facility] mandated warning applies: This information has been [...] law may result in a fine or prison sentence or both. A general authorization for the release of medical or other information is NOT sufficient authorization for further disclosure. Encounters Encounter Providers Location Date Indications Data Source(s ) Outpatient Attender: [place]AR[place], [facility]28/2019 [facility] [place] Z03.818 Emergency Attender: STAFF ED STAFF H 06/06/2019 03:28:00 AM [facility] EST - 06/06/2019 07:07:00 Center AM EST Patient discharged. Insurance Providers Payer name Policy Policy ID Covered Covered Policy Plan Info rmation type / constitution party ID constitution party's Ariza Coverage relationship type to ariza CIGNA [id number] SP [id number] [employer] HMO G H I - O [id number] 01 [id number] [facility] I G N A O [id number] 01 [id number] H M O O NO FAULT [id number] SP [id number] [employer]IG[employer] [id number] HEALTHCARE HMO [place] [id number] SP [id number] Problems, Conditions, and Diagnoses Code Display Name Description Problem Type Effective Data Sour ce(s) Dates Z03.818 Encounter for ENCNTR FOR OBS Diagnosis 08/28/2019 [facility] observation for FOR SUSP EXPSR 04:00:00 PM Coun ty Health suspected TO OT BIOLG EDT Care Corpor[facility] tion exposure to other AGENTS RULED OUT biological agents ruled out Z53.21 Procedure and PROC/TRTMT NOT Diagnosis 06/06/2019 [facility] treatment not CRD OUT D/T PT [...] not applicable PLACE OR NOT 03:28:00 AM [facility] APPLICABLE EST Y93.9 Activity, ACTIVITY, [...] initial encounter Results ID Date Data Source [id number] 08/28/2019 12:00:00 AM EDT [facility] Name Value Range Interpretation Code Description Data Tabatha rce(s) Supporting Document(s ) 2019-nCoV [facility] RNA XXX NIKKI+probe- Imp This lab was ordered by [facility] and reported by [employer] Procedure Social History Code Duration Value Status Description Data Source(s ) Smoking 06/06/2019 Denies Ever completed Denies Ever Smoked [facility] 03:32:00 AM EST Sm[facility] enter
--- NOTE | 2020-02-08 19:27 | PN ---
Teaching Attending Note Name of Resident: Prabhu Doll ATTENDING PHYSICIAN STATEMENT I saw and evaluated the patient. I reviewed the resident's note and discussed the case with the resident. I agree with the resident's findings and plan as documented. SUBJECTIVE: Patient is a 24-year-old woman with a PMH of F5 Leiden deficiency, Borderline DM, Gastric sleeve surgery, GERD, Thyroid disease (resolved), Marijuana and Hookah use who presents with SOB, cough and persistent hemoptysis. Patient states that two weeks ago she started coughing and at some point noticed bright red blood in her phlegm. Also complaining of pleuritic chest pain and shortness of breath. Has had multiple negative COVID PCR tests including at [facility] in ER yesterday. Patient denies abdominal pain, headache, palpitations, dizziness, fever, chills, nausea, vomiting, diarrhea, constipation, dysuria, frequency, urgency, melena, hematochezia or hematuria. Denies alcohol or illicit drug use. No sick contacts or recent travels. Patient has a family history of blood clots with mother on lifelong anticoagulation. OBJECTIVE: Alert Vital Signs Period Temp Pulse Resp BP Sys/Rodriguez Pulse Ox Last 24 Hr 98.8 F 77-89 18-18 132-135/95-97 100-100 HEENT: No Jaundice, eye redness or discharge, PERRLA, EOMI. Normocephalic, atraumatic. External ears are normal and hearing is grossly intact. No nasal discharge. Neck: Supple, nontender. No palpable adenopathy or thyromegaly. No JVD Chest: Good effort. Clear to auscultation and percussion. Heart: Regular. No S3, rub or murmur Abdomen: Not distended, soft, nontender and no HSM. No rebound or guarding. Normal bowel sounds. Ext: Peripheral pulses intact. No leg edema. Skin: Warm and dry. No petechiae, rash or ecchymosis. Neuro: Alert. Oriented x3. CN 2-12 grossly intact. Sensation grossly intact in all four extremities and DTR are symmetric. Psych: Appropriate mood and affect. Good insight. Home Medications Medication Instructions Recorded Famotidine 20 mg PO DAILY 05/02/18 Albuterol Sulfate Inhaler - 2 inh PO Q6H PRN #1 inh 02/08/20 [Ventolin HFA Inhaler -] Azithromycin [Zithromax 250mg 250 mg PO UTDICT #6 tab 02/08/20 Tablets -] Promethazine/Dextromethorphan 5 ml PO QID PRN #90 ml 02/08/20 [Promethazine-Dm Syrup] Abnormal Lab Results 02/08/20 02/08/20 02/08/20 13:45 14:36 14:50 WBC 11.8 H Absolute Neuts (auto) 9.2 H D-Dimer 8872 H Anion Gap 6 L AST 13 L Current Medications Generic Name Dose Route Start Last Admin Trade Name Freq PRN Reason Stop Dose Admin Enoxaparin Sodium 80 mg 02/08/20 22:00 Lovenox - SQ BID ELYSSA ASSESSMENT AND PLAN: 1. Multiple bilateral Pulmonary emboli - CTA chest shows multiple bilateral pulmonary emboli. Started on Lovenox 80 mg sq q 12 hours. Get ECHO and consult Pulmonary. Switch to DOAC once Case management confirms which one his health insurance offers. EKG shows NSR at 72/minute and QTc 433, T wave flattening in V5-V6 with no significant acute ischemic ST changes. Not significantly changed compared to prior EKG. Initial troponin is negative. Counseled patient about avoidance of estrogen-containing contraceptives. 2. Overweight Counseled on the risks associated with being overweight. Will provide patient all the necessary assistance, counseling and positive reinforcement to facilitate weight loss. Consult registered appraiser. 3. DVT prophylaxis - On Lovenox 80 mg SQ q 12 hours for PE. 4. Advance directives - Full code
--- NOTE | 2020-02-08 20:49 | HP ---
CHIEF COMPLAINT: Chest pain and hemoptysis PCP: Dr. Mychal Doll HISTORY OF PRESENT ILLNESS: Ms. Garcia is a 24F w a h/o factor V lieden deficiency, hypothyroidism, marijuana use, vape use, sleeve gastrectomy in 2017, and GERD, presenting to the emergency department at the behest of Dr. Doll after a complaint of hemoptysis and left back and shoulder pain with dyspnea. The patient reports that for the past month she had been going out, drinking and smoking excessively, and sitting in a car for 4-5 hours every day. She first noted having a non-productive dry cough on january 27 and felt feverish. She reports the fever had subsided but her cough remained. She had her first episode of hemoptysis 2 days ago and had arrived to the emergency department on february 06 and was treated for bronchitis. She returned today and was admitted for a diagnosis of PE. The patient denies experiecing this in the past. She denies current fever, nausea, vomiting, abdominal pain, palpitations, syncope, lower extremity edema or pain. Recent Travel: denies PAST MEDICAL HISTORY: PAST SURGICAL HISTORY: Social History: Smoking: vape - quit last year Alcohol: many drinks per day quit drinking 2 days ago Drugs: marijuana Allergies No Known Drug Allergies Allergy (Verified 02/07/20 23:46) HOME MEDICATIONS: Home Medications Medication Instructions Recorded Famotidine 20 mg PO DAILY 05/02/18 Albuterol Sulfate Inhaler - 2 inh PO Q6H PRN #1 inh 02/08/20 [Ventolin HFA Inhaler -] Azithromycin [Zithromax 250mg 250 mg PO UTDICT #6 tab 02/08/20 Tablets -] Promethazine/Dextromethorphan 5 ml PO QID PRN #90 ml 02/08/20 [Promethazine-Dm Syrup] REVIEW OF SYSTEMS see above PHYSICAL EXAMINATION Vital Signs - 24 hr 02/08/20 02/08/20 02/08/20 13:03 18:09 18:51 Temperature 98.8 F Pulse Rate 89 Pulse Rate [ 77 Apical] Respiratory 18 18 Rate Blood Pressure 135/97 Blood Pressure 132/95 [Right Arm] O2 Sat by Pulse 100 100 100 Oximetry (%) GENERAL: Awake, alert, and fully oriented, in no acute distress. HEAD: Normal with no signs of trauma. LUNGS: Breath sounds equal, clear to auscultation bilaterally. No wheezes, and no crackles. No accessory muscle use. HEART: Regular rate and rhythm, normal S1 and S2 without murmur, rub or gallop. ABDOMEN: Soft, nontender, not distended, normoactive bowel sounds, no guarding, no rebound, no masses. No hepatomegaly or splenomegaly. LOWER EXTREMITIES: 2+ pulses, warm, well-perfused. No calf tenderness. No peripheral edema. Laboratory Results - last 24 hr 02/08/20 02/08/20 02/08/20 13:45 14:36 14:50 WBC 11.8 H RBC 4.52 Hgb 14.1 Hct 42.4 D MCV 93.8 MCH 31.2 MCHC 33.3 RDW 12.9 Plt Count 276 MPV 7.7 Absolute Neuts (auto) 9.2 H Neutrophils % 78.6 Lymphocytes % 13.3 Monocytes % 5.6 Eosinophils % 2.0 D Basophils % 0.5 Nucleated RBC % 0 D-Dimer 8872 H Sodium 139 Potassium 4.1 Chloride 105 Carbon Dioxide 28 Anion Gap 6 L BUN 10.2 Creatinine 0.7 Est GFR (CKD-EPI)AfAm 140.55 Est GFR (CKD-EPI)NonAf 121.27 Random Glucose 97 Calcium 9.1 Total Bilirubin 0.5 AST 13 L ALT 17 Alkaline Phosphatase 100 Troponin I < 0.02 B-Natriuretic Peptide 91.3 Total Protein 7.0 Albumin 3.4 Serum , Qual 02/08/20 14:50 WBC RBC Hgb Hct MCV MCH MCHC RDW Plt Count MPV Absolute Neuts (auto) Neutrophils % Lymphocytes % Monocytes % Eosinophils % Basophils % Nucleated RBC % D-Dimer Sodium Potassium Chloride Carbon Dioxide Anion Gap BUN Creatinine Est GFR (CKD-EPI)AfAm Est GFR (CKD-EPI)NonAf Random Glucose Calcium Total Bilirubin AST ALT Alkaline Phosphatase Troponin I B-Natriuretic Peptide Total Protein Albumin Serum , Qual Negative ASSESSMENT/PLAN: Ms. Garcia is a 24F w a h/o factor V lieden deficiency, hypothyroidism, marijuana use, vape use, sleeve gastrectomy in 2017, and GERD, presenting to the emergency department at the behest of Dr. Doll after a complaint of he moptysis and left back and shoulder pain with dyspnea. #Bilateral lobar submassive pe - cont lovenox 1mg/kg BID (80mg BID) - admit to med/surg - Consult pulmonology - Dr. Don - Consult heme-onc - Dr. Ibarra (has seen Dr. Herrera in the past) - Consult PCP - Dr. Doll #Factor V leiden deficiency - possible LMWH bridge to warfarin - lifelong antithrombotic therapy NOT recommended - Consultation for heme-onc #Hypothyroidism - Confirm home dose of synthroid - has not seen endo in over 1 year - TSH/T4 level #DVT ppx - Lovenox SQ #FEN - PO intake - monitor lytes - Regular diet #Dispo - Admit to telemetry #Advanced directive - Full code Family Medical History Family History: As Documented Visit type - Emergency Visit Emergency Visit: Yes ED Registration Date: 02/08/20 Care time: The patient presented to the Emergency Department on the above date and was hospitalized for further evaluation of their emergent condition. - New Patient This patient is new to me today: No - Critical Care Critical Care patient: No ATTENDING PHYSICIAN STATEMENT I saw and evaluated the patient. I reviewed the resident's note and discussed the case with the resident. I agree with the resident's findings and plan as documented. SUBJECTIVE: OBJECTIVE: ASSESSMENT AND PLAN:
[2020-02-08] MEDS ORDERED: ENOXAPARIN NA (PORCINE) 30 MG/0.3 ML DISP.SYRIN SQ SCH (22:00)
[2020-02-08 22:39] LABS: INR 1.22 (0.83-1.09); PROTHROMBIN TIME (PATIENT) 14.3 SEC (9.7-13.0)
[2020-02-08 22:53] LABS: N-TERMINAL BNP 82.1 pg/ml (5-125)
[2020-02-08] MEDS ORDERED: ALBUTEROL SO4 0.083% IH SOL 2.5 MG/3 ML VIAL.NEB. NEB PRN (23:48)
[2020-02-09] MEDS: ACETAMINOPHEN 325 MG TABLET (FP) PO PRN ×2 (00:01→07:30)
[2020-02-09] MEDS ORDERED: ACETAMINOPHEN 1000 MG/100 ML VIAL (NON FORMULARY) IVPB ONE (02:42)
[2020-02-09] MEDS ORDERED: ENOXAPARIN NA (PORCINE) 80 MG/0.8 ML DISP.SYRIN SQ ONE ×3 (05:53→19:18)
[2020-02-09] MEDS: ENOXAPARIN NA (PORCINE) 30 MG/0.3 ML DISP.SYRIN SQ SCH ×2 (06:01→10:06)
[2020-02-09 07:14] LABS: BASO % 0.4 % (0-2.0); HEMATOCRIT 39.1 % (32.4-45.2); HEMOGLOBIN 13.3 GM/dL (10.7-15.3); LYMPH % 22.7 % (8-40); MCH 31.5 pg (25.7-33.7); MCHC 33.9 g/dl (32.0-36.0); MEAN CELL VOLUME 92.8 fl (80-96); MEAN PLT VOLUME 7.8 fl (7.5-11.1); MONO % 7.9 % (3.8-10.2); PLATELET COUNT 260 K/MM3 (134-434); RBC 4.21 M/mm3 (3.60-5.2); RDW 12.7 % (11.6-15.6); WHITE BLOOD COUNT 8.7 K/mm3 (4.0-10.0)
[2020-02-09] MEDS ORDERED: ACETAMINOPHEN 325 MG TABLET (FP) ONE (07:25)
[2020-02-09 07:58] LABS: ALBUMIN 2.9 g/dl (3.4-5.0); BLOOD UREA NITROGEN 7.2 mg/dL (7-18); CALCIUM 8.5 mg/dL (8.5-10.1); CREATININE 0.6 mg/dL (0.55-1.3); POTASSIUM 3.5 mmol/L (3.5-5.1); TOT PROT 6.2 g/dl (6.4-8.2)
[2020-02-09 07:59] LABS: BILIRUBIN,TOTAL 0.9 mg/dL (0.2-1)
--- NOTE | 2020-02-09 08:44 | CONSULT ---
Consultation: REQUESTING PROVIDER: CONSULT REQUEST: We have been asked to medically evaluate this patient for Pulmonary Embolism. HISTORY OF PRESENT ILLNESS: 24 y/o F PMHx Hypothyroidism, Polysubstance use disorder (Marijuana, Tobacco/Vape, EtOH), GERD presents with hemoptysis, SOB. About 2 weeks ago patient noticed nonproductive cough after sharing an alcoholic beverage with a known, Covid negative sick contact. Her cough has persisted since onset and was initially only productive of white phlegm. On 02/06, Patient had sudden onset hemoptysis prompting her to visit [facility]; She was treated for Viral URI and discharged with ABx however upon arriving home, her hemoptysis persisted and was accompanied by chest pressure. She alerted her PMD and was instructed to returned to [facility]. In the ED, she was found to have elevated D-Dimer for which a CTA was done revealing multiple PE's and patient was started on full dose anticoagulation. THis is the 1st time experiencing this; She denies any personal hx of blood clot disorders or VTE. 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 LMP on 01/19; Denies any medication use including OCPs/ control. Denies fevers, chills, nausea, vomiting, diarrhea, constipation, syncope, palpitations, lightheadedness. No Known TB Risk Factors; Denies any recent travel. Denies any sick contacts other than above stated and she endorses being outside with other people. PMHx: As per HPI PSHx: Gastric Sleeve Social Hx: Daily tobacco/Vape/hookah use, Daily Marijuana, 5-6 EtOH drinks daily FHx: Mother side with Thyroid disease and HTN. VTE in Mother (on Anticoagulation) and Maternal grandfather. Father's family with cancers (unknown type) REVIEW OF SYSTEMS: As per HPI PHYSICAL EXAMINATION Vital Signs Temperature 98.8 F 02/09/20 07:27 Pulse Rate 75 02/09/20 07:27 Respiratory Rate 18 02/09/20 07:27 Blood Pressure 127/83 02/09/20 07:27 O2 Sat by Pulse Oximetry (%) 100 02/09/20 07:27 GENERAL: A&Ox3, NAD HEAD: NCAT EYES: PERRL, EOMI EARS, NOSE, THROAT: MMM NECK: Supple LUNGS: Diminished breath sounds at the bases, No wheezes HEART: Regular rate and rhythm, normal S1 and S2 without murmur ABDOMEN: Soft, nontender, not distended, + bowel sounds, no guarding MUSCULOSKELETAL: No CVA tenderness. EXTREMITIES: No peripheral edema. NEUROLOGICAL: Cranial nerves II-XII intact. SKIN: Warm, dry Laboratory Last Values WBC 8.7 K/mm3 (4.0-10.0) 02/09/20 05:57 RBC 4.21 M/mm3 (3.60-5.2) 02/09/20 05:57 Hgb 13.3 GM/dL (10.7-15.3) 02/09/20 05:57 Hct 39.1 % (32.4-45.2) 02/09/20 05:57 MCV 92.8 fl (80-96) 02/09/20 05:57 MCH 31.5 pg (25.7-33.7) 02/09/20 05:57 MCHC 33.9 g/dl (32.0-36.0) 02/09/20 05:57 RDW 12.7 % (11.6-15.6) 02/09/20 05:57 Plt Count 260 K/MM3 (134-434) 02/09/20 05:57 MPV 7.8 fl (7.5-11.1) 02/09/20 05:57 Absolute Neuts (auto) 5.7 K/mm3 (1.5-8.0) 02/09/20 05:57 Neutrophils % 66.0 % (42.8-82.8) 02/09/20 05:57 Lymphocytes % 22.7 % (8-40) D 02/09/20 05:57 Monocytes % 7.9 % (3.8-10.2) 02/09/20 05:57 Eosinophils % 3.0 % (0-4.5) 02/09/20 05:57 Basophils % 0.4 % (0-2.0) 02/09/20 05:57 Nucleated RBC % 0 % (0-0) 02/09/20 05:57 PT with INR 14.30 SEC (9.7-13.0) H 02/08/20 21:55 INR 1.22 (0.83-1.09) H 02/08/20 21:55 D-Dimer 8872 ng/ml (0-500) H 02/08/20 13:45 Sodium 139 mmol/L (136-145) 02/09/20 05:57 Potassium 3.5 mmol/L (3.5-5.1) 02/09/20 05:57 Chloride 106 mmol/L (98-107) 02/09/20 05:57 Carbon Dioxide 26 mmol/L (21-32) 02/09/20 05:57 Anion Gap 7 MMOL/L (8-16) L 02/09/20 05:57 BUN 7.2 mg/dL (7-18) 02/09/20 05:57 Creatinine 0.6 mg/dL (0.55-1.3) 02/09/20 05:57 Est GFR (CKD-EPI)AfAm 147.86 02/09/20 05:57 Est GFR (CKD-EPI)NonAf 127.58 02/09/20 05:57 Random Glucose 102 mg/dL (74-106) 02/09/20 05:57 Calcium 8.5 mg/dL (8.5-10.1) 02/09/20 05:57 Total Bilirubin 0.9 mg/dL (0.2-1) 02/09/20 05:57 AST 11 U/L (15-37) L 02/09/20 05:57 ALT 15 U/L (13-61) 02/09/20 05:57 Alkaline Phosphatase 88 U/L (45-117) 02/09/20 05:57 Troponin I < 0.02 ng/ml (0.00-0.05) 02/08/20 21:55 B-Natriuretic Peptide 82.1 pg/ml (5-125) 02/08/20 21:55 Total Protein 6.2 g/dl (6.4-8.2) L 02/09/20 05:57 Albumin 2.9 g/dl (3.4-5.0) L 02/09/20 05:57 TSH 1.26 uIU/ml (0.358-3.74) 02/09/20 05:57 Free T4 1.06 ng/dl (0.76-1.46) 02/09/20 05:57 Serum , Qual Negative 02/08/20 14:50 Blood Type O NEGATIVE 02/08/20 21:55 Antibody Screen Negative 02/08/20 21:55 ASSESSMENT/PLAN: 24 y/o F PMHx Hypothyroidism, Polysubstance use disorder (Marijuana, Tobacco/Vape, EtOH), GERD, Significant FHx for VTE, presents with hemoptysis/SOB, admitted for submassive PE found on CTA and started on full dose lovenox. Hematology consulted for PE. #Submassive PE -Likely provoked given relative immobility (Long car rides), Obesity, FHx of hypercoagulability -BNP and Trops WNL -Echo, Duplex -Pulmonary evaluation -Will likely transition to Elliquis pending above echo -Smoking Cessation -Will need close outpatient hematology work up for hypercoagulability Dispo: We will continue to follow the patient. Thank you for this consultative opportunity. Visit type - Emergency Visit Emergency Visit: Yes ED Registration Date: 02/08/20 Care time: The patient presented to the Emergency Department on the above date and was hospitalized for further evaluation of their emergent condition. - New Patient This patient is new to me today: Yes Date on this admission: 02/10/20 - Critical Care Critical Care patient: No ATTENDING PHYSICIAN STATEMENT I saw and evaluated the patient. I reviewed the resident's note and discussed the case with the resident. I agree with the resident's findings and plan as documented. SUBJECTIVE: OBJECTIVE: ASSESSMENT AND PLAN:
--- NOTE | 2020-02-09 09:51 | EKG ---
Test Reason : Blood Pressure : / mmHG Vent. Rate : 072 BPM Atrial Rate : 072 BPM P-R Int : 138 ms QRS Dur : 088 ms QT Int : 396 ms P-R-T Axes : 044 028 020 degrees QTc Int : 433 ms NORMAL SINUS RHYTHM WITH SINUS ARRHYTHMIA NONSPECIFIC T WAVE ABNORMALITY ABNORMAL ECG WHEN COMPARED WITH ECG OF 16-JAN-2017 11:56, NONSPECIFIC T WAVE ABNORMALITY NOW EVIDENT IN ANTEROLATERAL LEADS Confirmed by MD Carloz, Luca ([id number]) on 02/09/2020 9:51:22 AM Referred By: Confirmed By:Luca Carty MD
--- NOTE | 2020-02-09 11:34 | PN ---
Progress Note, Physician Chief Complaint: LLL Pulmonary embolism History of Present Illness: 24 y/o F PMHx Hypothyroidism, Polysubstance use disorder (Marijuana, Tobacco/Vape, EtOH), GERD presents with hemoptysis, SOB. About 2 weeks ago patient noticed nonproductive cough after sharing an alcoholic beverage with a known, Covid negative sick contact. Her cough has persisted since onset and was initially only productive of white phlegm. On 02/06, Patient had sudden onset hemoptysis prompting her to visit [facility]; She was treated for Viral URI and discharged with ABx however upon arriving home, her hemoptysis persisted and was accompanied by chest pressure. She alerted her PMD and was instructed to returned to [facility]. In the ED, she was found to have elevated D-Dimer for which a CTA was done revealing multiple PE's and patient was started on full dose anticoagulation. THis is the 1st time experiencing this; She denies any personal hx of blood clot disorders or VTE. 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 LMP on 01/19; Denies any medication use including OCPs/ control. Denies fevers, chills, nausea, vomiting, diarrhea, constipation, syncope, palpitations, lightheadedness. No Known TB Risk Factors; Denies any recent travel. Denies any sick contacts other than above stated and she endorses being outside with other people. - Current Medication List Current Medications: Active Medications Acetaminophen (Tylenol -) 650 mg PO Q6H PRN PRN Reason: FOR CHEST PAIN Last Admin: 02/09/20 07:30 Dose: 650 mg Documented by: Albuterol Sulfate (Ventolin 0.083% Nebulizer Soln -) 1 amp NEB Q8H PRN PRN Reason: SHORT OF BREATH/WHEEZING Enoxaparin Sodium (Lovenox -) 80 mg SQ BID ELYSSA Last Admin: 02/09/20 10:06 Dose: 80 mg Documented by: - Objective Vital Signs: Vital Signs Temperature 98.8 F 02/09/20 07:27 Pulse Rate 75 02/09/20 07:27 Respiratory Rate 18 02/09/20 07:27 Blood Pressure 127/83 02/09/20 07:27 O2 Sat by Pulse Oximetry (%) 100 02/09/20 07:27 Constitutional: Yes: Well Nourished, No Distress, Calm Cardiovascular: Yes: Regular Rate and Rhythm Respiratory: Yes: Regular, CTA Bilaterally Gastrointestinal: Yes: Normal Bowel Sounds, Soft Genitourinary: Yes: WNL Musculoskeletal: Yes: WNL Extremities: Yes: WNL Edema: No Peripheral Pulses WNL: Yes Neurological: Yes: Alert, Oriented Psychiatric: Yes: Alert, Oriented Labs: CBC, BMP 02/09/20 05:57 02/09/20 05:57 INR, PTT INR 1.22 (0.83-1.09) H 02/08/20 21:55 Problem List - Problems (1) Pulmonary embolism Assessment/Plan: -CTA chest 02/08/20: Acute emboli are seen within the left lower lobe lobar artery as well as within the posterior segmental branch of the left lower lobe. There is also an acute embolus within the lateral segmental branch of the right lower lobe. Left posterior basilar subpleural opacity is noted probably representing edema and/or blood due to pulmonary infarction. -Echo -U/S duplex BLLE -Lovenox--> transition to NOAC-eliquis 10 mg po BID x 7 days then change to 5 mg po bid Problems reviewed: Yes Code(s): I26.99 - OTHER PULMONARY EMBOLISM WITHOUT ACUTE COR PULMONALE Qualifiers: Pulmonary embolism type: unspecified Chronicity: acute Acute cor pulmonale presence: unspecified Qualified Code(s): I26.99 - Other pulmonary embolism without acute cor pulmonale Assessment/Plan See problem list
--- NOTE | 2020-02-09 11:54 | CON.PULM ---
Consult Consult Specialty:: PULMONARY Referred by:: Dr Love Reason for Consultation:: PE - History of Present Illness Chief Complaint: hemoptysis History of Present Illness: 24yo female with h/o GERD, h/o Gastric Sleeve bariatric surgery who was admitted with back pain and hemoptysis x 4 days. Deep inspiration limited by the pain which leads to shortness of breath. Denies palpitations or chest pain. No fevers, chills or sweats. Found to have segmental PEs with evidence of pulmonary infarct on CTA chest. Pt denies history of clots, Factor V Leiden noted in the chart but pt denies. States that her mom did have a clot as well. She is a non cigarette smoker but smokes marijuana and hookah. She has been more sedentary recently, hanging out in her car for prolonged periods. - History Source History Provided By: Patient, Medical Record Limitations to Obtaining History: No Limitations - Past Medical History ...LMP: 01/16/20 ...: No - Alcohol/Substance Use Hx Alcohol Use: No - Smoking History Smoking history: Current every day smoker Have you smoked in the past 12 months: No Aproximately how many cigarettes per day: 0 If you are a former smoker, when did you quit?: LAST HOOKA USE 06/2015 Home Medications - Allergies Allergies/Adverse Reactions: Allergies Allergy/AdvReac Type Severity Reaction Status Date / Time No Known Drug Allergies Allergy Verified 02/07/20 23:46 - Home Medications Home Medications: Ambulatory Orders Famotidine 20 mg PO DAILY 05/02/18 Albuterol Sulfate Inhaler - [Ventolin HFA Inhaler -] 2 inh PO Q6H PRN #1 inh 02/08/20 Azithromycin [Zithromax 250mg Tablets -] 250 mg PO UTDICT #6 tab 02/08/20 Promethazine/Dextromethorphan [Promethazine-Dm Syrup] 5 ml PO QID PRN #90 ml 02/08/20 Review of Systems - Review of Systems Constitutional: denies: Chills, Fever Eyes: denies: Recent Change in Vision HENT: denies: Nasal Congestion, Throat Pain Neck: denies: Tenderness Cardiovascular: reports: Shortness of Breath. denies: Chest Pain, Edema, Palpitations Respiratory: reports: Hemoptysis. denies: Cough, Wheezing Gastrointestinal: denies: Abdominal Pain, Nausea, Vomiting Genitourinary: denies: Dysuria, Hematuria Musculoskeletal: reports: Back Pain Neurological: denies: Dizziness, Headache Endocrine: denies: Unexplained Weight Loss Physical Exam Vital Sings: Vital Signs Temperature 98.8 F 02/09/20 07:27 Pulse Rate 75 02/09/20 07:27 Respiratory Rate 18 02/09/20 07:27 Blood Pressure 127/83 02/09/20 07:27 O2 Sat by Pulse Oximetry (%) 100 02/09/20 07:27 Constitutional: Yes: Calm Eyes: Yes: Conjunctiva Clear, EOM Intact HENT: Yes: Atraumatic, Normocephalic Neck: Yes: Supple, Trachea Midline Cardiovascular: Yes: Regular Rate and Rhythm Respiratory: Yes: Diminished (at bases) ...Clubbing: No Gastrointestinal: Yes: Normal Bowel Sounds, Soft. No: Tenderness Edema: No Neurological: Yes: Alert, Oriented Labs: CBC, BMP 02/09/20 05:57 02/09/20 05:57 Imaging - Results Cat Scan: Report Reviewed, Image Reviewed (RLL, LLL PEs) Assessment/Plan Acute Pulmonary Emboli GERD h/o Gastric Sleeve - continue anticoagulation - pain control - LE dopplers negative for DVT - echocardiogram although low suspicion for RV strain - can start oral anticoagulation if echocardiogram unremarkable - VTE likely from prolonged immobilization and morbid obesity, can anticoagulate for 3 months - hypercoagulable work up as outpt given family history Thank you for this consult Pastor Szymanski MD
--- NOTE | 2020-02-09 14:33 | ECHO ---
Version: 1 Name: LIZ ENCINAS Exam: Adult Echocardiogram Study Date: 02/09/2020, 12:08 PM Age: 24 Years MMode/2D Measurements & Calculations IVSd: 0.89 cm LVIDs: 2.8 cm LVIDd: 4.3 cm LVPWd: 0.88 cm LAV (MOD-bp): 48.0 ml LVOT diam: 2.00 cm Ao root diam: 2.8 cm LA dimension: 3.4 cm Doppler Measurements & Calculations MV E max bry: 86.4 cm/sec Med E/e': 8.1 MV A max bry: 76.8 cm/sec Med Peak E' Bry: 10.6 cm/sec MV E/A: 1.13 Lat E/e': 4.1 Lat Peak E' Bry: 21.3 cm/sec Ao max P.9 mmHg Ao V2 max: 149.3 cm/sec PI end-d bry: 149.3 cm/sec TR max bry: 234.1 cm/sec TR max P.9 mmHg Left Ventricle The left ventricular size, thickness and function are normal. EF 66%. Right Ventricle The right ventricle is normal in size and function. Atria Normal left and right atrial size and function. Mitral Valve The mitral valve is normal in structure and function. Tricuspid Valve The tricuspid valve is normal in structure and function. Mild TR, PASP27 mmHg. Aortic Valve The aortic valve is normal in structure and function. Pulmonic Valve The pulmonic valve is normal in structure and function. Great Vessels The aortic root is normal size. Pericardium/Pleura There is no pericardial effusion. Summary Statements The left ventricular size, thickness and function are normal EF 66% The right ventricle is normal in size and function. Normal left and right atrial size and function. The mitral valve is normal in structure and function. The tricuspid valve is normal in structure and function. The aortic valve is normal in structure and function. The pulmonic valve is normal in structure and function. Mild TR, PASP27 mmHg MD Luca Carty 02/09/2020, 2:33 PM Ordering Physician: January Correia Performed By: Irena Cason
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
--- NOTE | 2020-02-09 20:21 | CON.HO ---
Consult - text type - Consultation Consultation Note: 24yo female with h/o GERD, h/o Gastric Sleeve bariatric surgery who was admitted with back pain and hemoptysis x 4 days. Deep inspiration limited by the pain which leads to shortness of breath. Denies palpitations or chest pain. No fevers, chills or sweats. Found to have segmental PEs with evidence of pulmonary infarct on CTA chest. She is a non cigarette smoker but smokes marijuana and hookah. She has been more sedentary recently, hanging out in her car for pr olonged periods. Mother on Xeralto for recurrent DVTs Started on lovenox - History Source History Provided By: Patient, Medical Record Limitations to Obtaining History: No Limitations - Past Medical History ...LMP: 01/16/20 ...: No - Alcohol/Substance Use Hx Alcohol Use: No - Smoking History Smoking history: Current every day smoker Have you smoked in the past 12 months: No Aproximately how many cigarettes per day: 0 If you are a former smoker, when did you quit?: LAST HOOKA USE 06/2015 Home Medications - Allergies Allergies/Adverse Reactions: Allergies Allergy/AdvReac Type Severity Reaction Status Date / Time No Known Drug Allergies Allergy Verified 02/07/20 23:46 - Home Medications Home Medications: Ambulatory Orders Famotidine 20 mg PO DAILY 05/02/18 Albuterol Sulfate Inhaler - [Ventolin HFA Inhaler -] 2 inh PO Q6H PRN #1 inh 02/08/20 Azithromycin [Zithromax 250mg Tablets -] 250 mg PO UTDICT #6 tab 02/08/20 Promethazine/Dextromethorphan [Promethazine-Dm Syrup] 5 ml PO QID PRN #90 ml 02/08/20 Physical Exam Vital Sings: Vital Signs Temperature 98.8 F 02/09/20 07:27 Pulse Rate 75 02/09/20 07:27 Respiratory Rate 18 02/09/20 07:27 Blood Pressure 127/83 02/09/20 07:27 O2 Sat by Pulse Oximetry (%) 100 02/09/20 07:27 Constitutional: Yes: Calm Eyes: Yes: Conjunctiva Clear, EOM Intact HENT: Yes: Atraumatic, Normocephalic Neck: Yes: Supple, Trachea Midline Cardiovascular: Yes: Regular Rate and Rhythm Respiratory: Yes: Diminished (at bases) Gastrointestinal: Yes: Normal Bowel Sounds, Soft. No: Tenderness Labs: CBC, BMP 02/09/20 05:57 02/09/20 05:57 Imaging - Results Cat Scan: Report Reviewed, Image Reviewed (RLL, LLL PEs) Assessment/Plan Acute Pulmonary Emboli GERD h/o Gastric Sleeve Hookah use, prolonged periods of immobility while hanging out with friends in the car. Relative immobility ? unprovoked PE On lovenox -- switch to eliquis at discharge Disucsssed with patient various oral a/c options will follow
[2020-02-09] MEDS ORDERED: traMADol HCL 50 MG TABLET PO ONE (23:32)
[2020-02-10] MEDS ORDERED: ACETAMINOPHEN 1000 MG/100 ML VIAL (NON FORMULARY) IVPB ONE (00:11)
--- NOTE | 2020-02-10 08:10 | PN ---
Progress Note, Physician - Current Medication List Current Medications: Active Medications Acetaminophen (Tylenol -) 650 mg PO Q6H PRN PRN Reason: FOR CHEST PAIN Last Admin: 02/09/20 07:30 Dose: 650 mg Documented by: Albuterol Sulfate (Ventolin 0.083% Nebulizer Soln -) 1 amp NEB Q8H PRN PRN Reason: SHORT OF BREATH/WHEEZING Apixaban (Eliquis -) 10 mg PO BID ELYSSA - Objective Vital Signs: Vital Signs Temperature 98.9 F 02/09/20 21:00 Pulse Rate 75 02/10/20 07:00 Respiratory Rate 18 02/10/20 07:00 Blood Pressure 111/58 L 02/10/20 07:00 O2 Sat by Pulse Oximetry (%) 99 02/10/20 07:00 Cardiovascular: Yes: Regular Rate and Rhythm Respiratory: Yes: Regular, CTA Bilaterally Gastrointestinal: Yes: Normal Bowel Sounds, Soft Extremities: No: Calf Tenderness Edema: No Labs: CBC, BMP 02/09/20 05:57 02/09/20 05:57 INR, PTT INR 1.22 (0.83-1.09) H 02/08/20 21:55 Problem List - Problems (1) Pulmonary embolism Assessment/Plan: -CTA chest 02/08/20: Acute emboli are seen within the left lower lobe lobar artery as well as within the posterior segmental branch of the left lower lobe. There is also an acute embolus within the lateral segmental branch of the right lower lobe. Left posterior basilar subpleural opacity is noted probably representing edema and/or blood due to pulmonary infarction. -Echo -U/S duplex BLLE -Lovenox--> transitioned to NOAC-eliquis 10 mg po BID x 7 days then change to 5 mg po bid Code(s): I26.99 - OTHER PULMONARY EMBOLISM WITHOUT ACUTE COR PULMONALE Qualifiers: Pulmonary embolism type: unspecified Chronicity: acute Acute cor pulmonale presence: unspecified Qualified Code(s): I26.99 - Other pulmonary embolism without acute cor pulmonale
[2020-02-10] MEDS: ACETAMINOPHEN 325 MG TABLET (FP) PO PRN (09:34)
[2020-02-10] MEDS ORDERED: traMADol HCL 50 MG TABLET PO ONE (10:00)
[2020-02-10] MEDS ORDERED: APIXABAN 5 MG TABLET PO SCH (10:00)
--- NOTE | 2020-02-10 11:38 | PN ---
Progress Note (short form) - Note Progress Note: PULMONARY States back pain, breathing better today. Dopplers and echocardiogram unremarkable. Vital Signs Period Temp Pulse Resp BP Sys/Rodriguez Pulse Ox Last 24 Hr 98.9 F 75-88 18-25 111-136/58-85 96-100 Intake & Output 02/07/20 02/08/20 02/09/20 02/10/20 23:59 23:59 23:59 23:59 Intake Total 100 Balance 100 Weight 74.843 kg Gen: NAD at rest Heart: RRR Lung: decreased breath sounds at the bases Abd: soft, nontender Ext: no edema CBC, BMP 02/09/20 05:57 02/09/20 05:57 Active Medications Acetaminophen (Tylenol -) 650 mg PO Q6H PRN PRN Reason: FOR CHEST PAIN Last Admin: 02/10/20 09:34 Dose: 650 mg Documented by: Albuterol Sulfate (Ventolin 0.083% Nebulizer Soln -) 1 amp NEB Q8H PRN PRN Reason: SHORT OF BREATH/WHEEZING Apixaban (Eliquis -) 10 mg PO BID [facility] Last Admin: 02/10/20 09:35 Dose: 10 mg Documented by: A/P Acute Pulmonary Emboli GERD h/o Gastric Sleeve - continue eliquis 10mg BID x 7 days then 5mg BID - can d/c home from pulmonary standpoint
[2020-02-10 11:51] VITALS: BP 125/75; PULSE 69; TEMP 97.8
--- NOTE | 2020-02-10 12:51 | CON.CARD ---
Consult Consult Specialty:: Cardiology Consult - History of Present Illness Chief Complaint: Chest pain History of Present Illness: This is a 24 year old female with a PMH of a factor 5 Leiden deficiency, borderline DM, past Bariatric surgery (gastric sleeve surgery), and GERD. She has a history of Vaping, smoking various tobacco products and marijuana. She presents with SOB, cough, and persistent hemoptysis. Approximately 2 weeks ago she started coughing and then noted hemoptysis. She complaints of pleurtic chest pain and shortness of breath. She has tested negative for COVID. She hasd a family history of having a hypercoaguable state, her mother is on lifelong AC. D-Dimer 8872 Troponin negative x2 Dopplers negative for DVT Chest CT 02/08/2020: Acute PE identified, Left lower lobe artery, post seg branch of the left lower lobe, lateral seg branch of the right lower lobe Echocardiogram 02/09/2020 Normal LV size and function, EF 66%. Normal RV size and function Normal MV Mild TR, PASP 27 mmHg EKG 02/08/2020 NSR at 72 BPM with sinus arrhythmia, normal intervals, normal axis, and NSSTTW changes. EKG 02/10/2020 NSR at 68 BPM with normal intervals, normal axis, and J-Point concave [address] elevations in leads V3-V6. K+ 3.5 - Past Medical History ...LMP: 01/16/20 ...: No - Alcohol/Substance Use Hx Alcohol Use: No - Smoking History Smoking history: Current every day smoker Have you smoked in the past 12 months: No Aproximately how many cigarettes per day: 0 If you are a former smoker, when did you quit?: LAST HOOKA USE 06/2015 Home Medications - Allergies Allergies/Adverse Reactions: Allergies Allergy/AdvReac Type Severity Reaction Status Date / Time No Known Drug Allergies Allergy Verified 02/07/20 23:46 - Home Medications Home Medications: Ambulatory Orders Apixaban [Eliquis -] 10 mg PO BID #67 tablet 02/10/20 Vital Signs: Vital Signs Temperature 97.8 F 02/10/20 11:50 Pulse Rate 69 02/10/20 11:50 Respiratory Rate 16 02/10/20 11:50 Blood Pressure 125/75 02/10/20 11:50 O2 Sat by Pulse Oximetry (%) 100 10/15/20 11:50 Constitutional: Yes: No Distress HENT: Yes: WNL Neck: Yes: WNL Respiratory: Yes: WNL Gastrointestinal: Yes: Soft Cardiovascular: Yes: Regular Rate and Rhythm Heart Sounds: Yes: S1, S2 Extremities: Yes: WNL Edema: No Neurological: Yes: Alert, Oriented - Other Data Labs, Other Data: CBC, BMP 02/09/20 05:57 02/09/20 05:57 INR, PTT INR 1.22 (0.83-1.09) H 02/08/20 21:55 Assessment/Plan 24 year old female with a PMH of a factor 5 Leiden deficiency, borderline DM, past Bariatric surgery (gastric sleeve surgery), and GERD. She has a history of Vaping, smoking various tobacco products and marijuana. She presents with SOB, cough, and persistent hemoptysis. Approximately 2 weeks ago she started coughing and then noted hemoptysis. She complaints of pleurtic chest pain and shortness of breath. She has tested negative for COVID. She hasd a family history of having a hypercoaguable state, her mother is on lifelong AC. D-Dimer 8872 Troponin negative x2 Dopplers negative for DVT Chest CT 02/08/2020: Acute PE identified, Left lower lobe artery, post seg branch of the left lower lobe, lateral seg branch of the right lower lobe Echocardiogram 02/09/2020 Normal LV size and function, EF 66%. Normal RV size and function Normal MV Mild TR, PASP 27 mmHg EKG 02/08/2020 NSR at 72 BPM with sinus arrhythmia, normal intervals, normal axis, and NSSTTW changes. EKG 02/10/2020 NSR at 68 BPM with normal intervals, normal axis, and J-Point concave [address] elevations in leads V3-V6. K+ 3.5 Acute PE Unprovoked and secondary to factor 5 Leiden deficiency Agree with starting Apixaban 10 mg PO Q12h EKG changes Unlikely to represent an acute coronary syndrome (ST elevation are not convex and there are some J-point elevations at baseline) More likely relates to electrolyte shifts (Potassium dropped from 4.1 to 3.5) There may also be a component of pericarditis, the symptoms are consistent, would chest ESR and CRP Would follow serial EKG's Continue to trend troponin Replete K+ Check Mg++ and replete as needed
--- NOTE | 2020-02-10 13:00 | DS ---
Physical Examination Vital Signs: Vital Signs Temperature 97.8 F 02/10/20 11:50 Pulse Rate 69 02/10/20 11:50 Respiratory Rate 16 02/10/20 11:50 Blood Pressure 125/75 02/10/20 11:50 O2 Sat by Pulse Oximetry (%) 100 02/10/20 11:50 Labs: CBC, BMP 02/09/20 05:57 02/09/20 05:57 Discharge Summary Problems reviewed: Yes Reason For Visit: PULMONARY EMBOLISM Current Active Problems Pulmonary embolism (Acute) Thyroiditis (Acute) Condition: Stable - Instructions Referrals: Mychal Doll MD [Primary Care Provider] - 1 Week - Home Medications Comprehensive Discharge Medication List: Ambulatory Orders Apixaban [Eliquis -] 10 mg PO BID #67 tablet 02/10/20
--- NOTE | 2020-02-10 14:52 | EKG ---
Test Reason : Blood Pressure : / mmHG Vent. Rate : 068 BPM Atrial Rate : 068 BPM P-R Int : 146 ms QRS Dur : 084 ms QT Int : 374 ms P-R-T Axes : 063 045 039 degrees QTc Int : 397 ms NORMAL SINUS RHYTHM WITH SINUS ARRHYTHMIA NORMAL ECG WHEN COMPARED WITH ECG OF 08-FEB-2020 18:35, ST ELEVATION NOW PRESENT IN ANTERIOR LEADS NONSPECIFIC T WAVE ABNORMALITY NO LONGER EVIDENT IN ANTEROLATERAL LEADS Confirmed by IDALIA FERNANDEZ MD ([id number]) on 02/10/2020 2:52:34 PM Referred By: Confirmed By:IDALIA FERNANDEZ MD
== END 2020-02-10 16:05 | disposition home or self-care (01) | DRG 176 ==
LOC: JER 12:57 → JERBED 18:13 → JICU 02-09 21:10
PROVIDERS: ADMIT Internal Medicine; ATTEND Family Medicine
DX: I26.99 Other pulmonary embolism without acute cor pulmonale (principal); K21.9 Gastro-esophageal reflux disease without esophagitis; E06.9 Thyroiditis, unspecified; E03.9 Hypothyroidism, unspecified
CPT/HCPCS: 36415; 71275-TC; 80053; 83880; 84439; 84443; 84484; 84703; 85025; 85379; 85610; 85730; 86850; 86900; 86901; 93005; 93010; 93306-TC; 93970-TC; 99285-25; C9803; J0131; Q9967; U0003

== ENCOUNTER 2021-03-19 19:49 | Emergency (ER) | payer OTHER ==
[2021-03-19 19:57] VITALS: BP 138/82; PULSE 94; BMI 31.4
== END 2021-03-19 20:16 | disposition home or self-care (01) ==
LOC: FER 19:49
DX: K12.0 Recurrent oral aphthae (principal)
CPT/HCPCS: 99281-25

== ENCOUNTER 2022-01-02 07:08 | Emergency (ER) | payer OTHER ==
[2022-01-02 07:15] VITALS: BP 128/86; PULSE 80; RESP 20; TEMP 98.6; BMI 30.9
[2022-01-02] MEDS ORDERED: SODIUM CHLORIDE 1,000 ML IV ONE (07:41)
[2022-01-02] MEDS ORDERED: ONDANSETRON 4 MG/2 ML VIAL IVPB ONE (08:07)
[2022-01-02] MEDS ORDERED: PANTOPRAZOLE SODIUM 40 MG VIAL IVPUSH ONE (08:08)
[2022-01-02] MEDS ORDERED: MAG HYDROX/AL HYDROX/SIMETH -MYLANTA- ORAL SUSPENSION PO ONE (08:08)
[2022-01-02] MEDS ORDERED: PANTOPRAZOLE SODIUM 40 MG VIAL ONE (08:10)
[2022-01-02] MEDS ORDERED: MAG HYDROX/AL HYDROX/SIMETH 30 ML UNIT-DOSE CUP ONE (08:10)
[2022-01-02] MEDS ORDERED: ONDANSETRON 4 MG/2 ML VIAL ONE (08:10)
[2022-01-02 08:45] LABS: HEMATOCRIT 42.1 % (32.4-45.2); HEMOGLOBIN 14.7 G/dL (10.7-15.3); MCH 32.3 pg (25.7-33.7); MCHC 34.8 g/dl (32.0-36.0); MEAN CELL VOLUME 92.7 fl (80-96); MEAN PLT VOLUME 7.8 fl (7.5-11.1); PLATELET COUNT 260.1 10^3/uL (134-434); RBC 4.54 10^6/uL (3.60-5.2); RDW 13.9 % (11.6-15.6); WHITE BLOOD COUNT 8.3 10^3/uL (4.0-10.8)
[2022-01-02 08:56] LABS: ALBUMIN 3.6 g/dl (3.4-5.0); BILIRUBIN,TOTAL 0.7 mg/dl (0.2-1); CALCIUM 8.7 mg/dl (8.5-10); CREATININE 0.8 mg/dl (0.55-1.3); TOT PROT 6.4 g/dl (6.4-8.2)
[2022-01-02 09:01] LABS: PLATELET ESTIMATE ADEQUATE
== END 2022-01-02 09:35 | disposition home or self-care (01) ==
LOC: FER 07:08
PROC: 3E033NZ Introduction of Analgesics, Hypnotics, Sedatives into Peripheral Vein, Percutaneous Approach (ICD-10-PCS; principal; 2022-01-02)
PROC: 3E033GC Introduction of Other Therapeutic Substance into Peripheral Vein, Percutaneous Approach (ICD-10-PCS; 2022-01-02)
PROC: 3E0337Z Introduction of Electrolytic and Water Balance Substance into Peripheral Vein, Percutaneous Approach (ICD-10-PCS; 2022-01-02)
DX: K52.9 Noninfective gastroenteritis and colitis, unspecified (principal)
CPT/HCPCS: 36415; 80053; 83690; 85027; 99284-25

== ENCOUNTER 2023-10-07 20:12 | Emergency (ER) | payer OTHER ==
[2023-10-07 20:22] VITALS: BP 118/69; PULSE 97; RESP 20; TEMP 98.2
== END 2023-10-07 22:16 | disposition home or self-care (01) ==
LOC: JERFT 20:12 → JER 20:12 → JERFT 22:16
DX: S89.92XA Unspecified injury of left lower leg, initial encounter (principal); X50.1XXA Overexertion from prolonged static or awkward postures, initial encounter
CPT/HCPCS: 99282-25

== ENCOUNTER 2023-10-16 05:15 | Emergency (ER) | payer OTHER ==
[2023-10-16 05:26] VITALS: BP 126/86; PULSE 92; RESP 16; TEMP 98.9; BMI 30.5
[2023-10-16] MEDS ORDERED: METHOCARBAMOL 500 MG TABLET ONE (06:09)
[2023-10-16] MEDS ORDERED: ACETAMINOPHEN 325 MG TABLET (FP) ONE (06:09)
[2023-10-16] MEDS: ACETAMINOPHEN 500 MG TABLET (FP) PO ONE (06:41)
[2023-10-16] MEDS: METHOCARBAMOL 750 MG TAB PO ONE (06:42)
[2023-10-16] MEDS ORDERED: KETOROLAC TROMETHAMINE 30 MG/1 ML VIAL ONE (07:38)
[2023-10-16] MEDS: KETOROLAC TROMETHAMINE 30 MG/1 ML VIAL IM ONE (08:21)
== END 2023-10-16 09:07 | disposition home or self-care (01) ==
LOC: JER 05:15
DX: M25.562 Pain in left knee (principal); M79.662 Pain in left lower leg; M25.462 Effusion, left knee; X50.1XXA Overexertion from prolonged static or awkward postures, initial encounter
CPT/HCPCS: 73564-TC-LT-FY; 84703; 93971-TC; 99285-25

== ENCOUNTER 2023-10-26 23:46 | Emergency (ER) | payer OTHER ==
[2023-10-26 23:52] VITALS: BP 141/82; PULSE 80; RESP 16; TEMP 99.2
[2023-10-27 00:46] LABS: BASO % 0.7 % (0-2.0); HEMATOCRIT 36.2 % (32.4-45.2); HEMOGLOBIN 12.3 GM/dL (10.7-15.3); LYMPH % 32.5 % (8-40); MCH 30.5 pg (25.7-33.7); MCHC 33.9 g/dl (32.0-36.0); MEAN CELL VOLUME 90.1 fl (80-96); MEAN PLT VOLUME 7.5 fl (7.5-11.1); MONO % 5.8 % (3.8-10.2); PLATELET COUNT 327 10^3/uL (134-434); RBC 4.02 M/mm3 (3.60-5.2); RDW 13.7 % (11.6-15.6); WHITE BLOOD COUNT 6.8 K/mm3 (4.0-10.0)
[2023-10-27 01:03] LABS: INR 1.28 (0.83-1.09); PROTHROMBIN TIME (PATIENT) 14.6 SEC (9.7-13.0)
[2023-10-27 01:05] LABS: ACTIVATED PTT 29.2 SECONDS (25.2-36.5)
[2023-10-27] MEDS ORDERED: ACETAMINOPHEN INJECTION 100 ML IVPB ONE (01:16)
[2023-10-27 01:26] LABS: POTASSIUM 3.6 mmol/L (3.5-5.1)
[2023-10-27 01:28] LABS: CALCIUM 8.5 mg/dL (8.5-10.1)
[2023-10-27] MEDS: ACETAMINOPHEN 1000 MG/100 ML BAG IVPB ONE (01:28)
[2023-10-27 01:29] LABS: ALBUMIN 3.7 g/dl (3.4-5.0); BLOOD UREA NITROGEN 11.5 mg/dL (7-18); MAGNESIUM 1.7 mg/dL (1.8-2.4)
[2023-10-27 01:32] LABS: CREATININE 0.7 mg/dL (0.55-1.3)
[2023-10-27 01:34] LABS: BILIRUBIN,TOTAL 0.4 mg/dL (0.2-1); TOT PROT 6.5 g/dl (6.4-8.2)
[2023-10-27 01:37] LABS: N-TERMINAL BNP 45.8 pg/ml (5-125)
[2023-10-27] MEDS ORDERED: MAGNESIUM SULFATE IN WATER 2 GM/50 ML IVPB IVPB ONE (03:10)
[2023-10-27] MEDS: MAGNESIUM SULFATE IN WATER 2 GM/50 ML IVPB IVPB ONE (03:19)
[2023-10-27] MEDS ORDERED: MAGNESIUM OXIDE 400 MG TABLET (FP) ONE (03:28)
[2023-10-27] MEDS: MAGNESIUM OXIDE 400 MG TABLET (FP) PO ONE (03:29)
== END 2023-10-27 03:52 | disposition home or self-care (01) ==
LOC: JER 23:46
DX: R20.2 Paresthesia of skin (principal); R05.9 Cough, unspecified; R06.02 Shortness of breath; R20.0 Anesthesia of skin; M54.6 Pain in thoracic spine; R00.2 Palpitations; R61 Generalized hyperhidrosis; Z20.822 Contact with and (suspected) exposure to COVID-19
CPT/HCPCS: 0241U-QW; 36415; 71045-TC-FY; 71275-TC; 80053; 83735; 83880; 84484; 84703; 85025; 85610; 85730; 93005; 93010; 93971; 99285-25; Q9967

== ENCOUNTER 2024-01-21 12:14 | Emergency (ER) | payer OTHER ==
[2024-01-21 12:20] VITALS: BP 124/85; PULSE 75; RESP 18; TEMP 98.1; BMI 30.9
== END 2024-01-21 13:36 | disposition home or self-care (01) ==
LOC: JERFT 12:14
DX: R59.0 Localized enlarged lymph nodes (principal); M54.2 Cervicalgia
CPT/HCPCS: 87651; 99283-25

== ENCOUNTER 2024-07-23 11:42 | Emergency (ER) | payer OTHER ==
[2024-07-23] MEDS ORDERED: ACETAMINOPHEN 500 MG TABLET (FP) ONE (12:46)
[2024-07-23] MEDS ORDERED: LIDOCAINE 5% TOPICAL PATCH ONE (12:47)
[2024-07-23 12:55] VITALS: BP 126/86; PULSE 78; RESP 15; TEMP 98.6; BMI 32.4
[2024-07-23] MEDS: LIDOCAINE 5% TOPICAL PATCH TP ONE (13:00)
[2024-07-23] MEDS: ACETAMINOPHEN 500 MG TABLET (FP) PO ONE (13:09)
[2024-07-23] MEDS ORDERED: LIDOCAINE PATCH REMOVAL MC ONE (22:00)
== END 2024-07-23 14:06 | disposition home or self-care (01) ==
LOC: FER 11:42
DX: S13.4XXA Sprain of ligaments of cervical spine, initial encounter (principal); V53.5XXA Driver of pick-up truck or van injured in collision with car, pick-up truck or van in traffic accident, initial encounter
CPT/HCPCS: 70450-TC; 72125-TC; 81025; 99284-25